=== PATIENT | male | born 1985 | race Caucasian/White ===

== ENCOUNTER 2016-10-05 19:19 | Emergency (ER) | payer SELFPAY ==
[~2016-10-05] VITALS: Ht 167.6 cm; Wt 68.3 kg
[~2016-10-05 19:19] MED LIST: DAPS25TA2 PO; DOXY100C2 PO; LEVE500T6 PO; LEVE500T99 PO; MGCT300B PO; MULT1TAB86 PO; POLY119P PO; SULF1TAB38 PO; THIA100T12 PO; TRM50T PO
[2016-10-05 19:21] VITALS: BP 117/70
[2016-10-05] MEDS ORDERED: NS IV 1000 ML 1,000 ML IV ONE (19:28)
[2016-10-05] MEDS ORDERED: LEVETIRACETAM 1,000 MG (KEPPRA) TABLET PO ONE (19:30)
[2016-10-05 19:41] LABS: BASOPHILS % (AUTO) 1 % (0-10); EOSINOPHILS # (AUTO) 0.2 10^3/uL (0.0-0.3); EOSINOPHILS % (AUTO) 3 % (0-10); LYMPHOCYTES # (AUTO) 2.3 X 10^3 (1.0-4.0); LYMPHOCYTES % (AUTO) 33 % (12-44); MEAN CORPUSCULAR HEMOGLOBIN 29 PG (25-34); MEAN CORPUSCULAR HGB CONC 36 G/DL (32-36); MEAN CORPUSCULAR VOLUME 81 FL (80-99); MEAN PLATELET VOLUME 9.9 FL (7.4-10.4); MONOCYTES # (AUTO) 0.7 X 10^3 (0.0-1.0); MONOCYTES % (AUTO) 10 % (0-12); NEUTROPHILS # (AUTO) 3.7 X 10^3 (1.8-7.8); NEUTROPHILS % (AUTO) 53 % (42-75); PLATELET COUNT 321 10^3/uL (130-400); RED BLOOD COUNT 5.09 10^6/uL (4.35-5.85); RED CELL DISTRIBUTION WIDTH 12.9 % (10.0-14.5)
[2016-10-05 19:55] LABS: ALANINE AMINOTRANSFERASE 15 U/L (0-55); ALBUMIN 4.1 G/DL (3.2-4.5); ANION GAP 12 MMOL/L (5-14); ASPARTATE AMINO TRANSFERASE 16 U/L (5-34); BILIRUBIN,TOTAL 0.4 MG/DL (0.1-1.0); BLOOD UREA NITROGEN 14 MG/DL (7-18); BUN/CREATININE RATIO 17; CARBON DIOXIDE 20 MMOL/L (21-32); CHLORIDE 107 MMOL/L (98-107); CREATINE KINASE 102 U/L (30-200); CREATININE SERUM 0.83 MG/DL (0.60-1.30); GFR ESTIMATED > 60; GLUCOSE 89 MG/DL (70-105); MAGNESIUM 2.1 MG/DL (1.8-2.4); SODIUM 139 MMOL/L (135-145); TOTAL PROTEIN 6.6 G/DL (6.4-8.2)
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
[2016-10-05 20:00] LABS: ALCOHOL < 10 MG/DL (<10)
[2016-10-05] MEDS ORDERED: ACETAMINOPHEN 500 MG TAB (TYLENOL) PO ONE (20:15)
== END 2016-10-05 20:18 | disposition left against medical advice (07) ==
LOC: EDUNIT# 19:19 → ER 19:20
DX: G43.909 Migraine, unspecified, not intractable, without status migrainosus (principal); Z91.19 Patient's noncompliance with other medical treatment and regimen; Z53.29 Procedure and treatment not carried out because of patient's decision for other reasons
CPT/HCPCS: 36415; 80053; 80320; 82550; 82553; 83735; 84443; 85025; 96360

== ENCOUNTER 2016-10-29 03:23 | Emergency (ER) | payer SELFPAY ==
[~2016-10-29] VITALS: Ht 167.6 cm; Wt 66.1 kg
--- OUTSIDE RECORDS SUMMARY | 2016-10-29 03:30 | XMS REPORT | Continuity of Care Document ---
Author Author [facility] Organization [facility] Address Unknown Phone Unavailable Care Team Providers Care Director Surface Transportation Name Role Phone ERICKA MATHIS DO PCP Insurance Providers Payer Name Policy Number Subscriber Name Relationship Unknown Advance Directives Directive Response Recorded Date/Time Advance Directives No 10/05/16 7:21pm Health Care Power of Survey Chief No 10/05/16 7:21pm Organ Donor Yes 10/05/16 7:21pm Resuscitation Status Full Code 10/05/16 7:21pm Problems Active Problems Medical Problem Onset Date Status Agitation Unknown Acute Alcohol intoxication Unknown Acute Marijuana abuse Unknown Acute Recurrent seizures Unknown Acute Medications Current Home Medications Medication Dose Units Route Directions Days/Qty Instructions Start Date Levetiracetam 500 Mg 500 Mg Oral Twice A Day 0 05/03/16 Past Home Medications Medication Directions Ordered Status Levetiracetam (Keppra) 500 Mg Tablet, 1 Each Oral Twice A Day 02/12/11 Discontinued Thiamine Hcl 100 Mg Tablet, 100 Mg Oral Daily 02/12/11 Discontinued Multivit, Iron, Min #5, Fa 1 Each Tablet, 1 Each Oral Daily 02/12/11 Discontinued Trimethoprim/Sulfamethoxazole 1 Ea Tablet, 1 Ea Oral Twice A Day 11/13/12 Discontinued Tramadol Hcl 50 Mg Tab, 50 Mg Oral Every 4HRS 11/13/12 Discontinued Dapsone 25 Mg Tablet, 2 Each Oral Twice A Day 11/13/12 Discontinued Doxycycline Hyclate (Vibramycin) 100 Mg Capsule, 1 Each Oral Twice A Day 09/14 Discontinued Tramadol Hcl 50 Mg Tab, 50 Mg Oral Every 4HRS 01/24/13 Discontinued Polyethylene Glycol 119 Gm Btl, 0 Oral Bedtime 01/24/13 Discontinued Magnesium Citrate 300 Ml Btl, 0 Oral As Directed 01/24/13 Discontinued Social History Social History Problem Response Recorded Date/Time Alcohol Use Occasionally Uses 01/24/2013 2:24pm Recreational Drug Use No 01/24/2013 2:24pm Recent Foreign Travel No 01/24/2013 2:24pm Recent Infectious Disease Exposure No 01/24/2013 2:24pm Sexually Transmitted Disease No 10/05/2016 7:21pm HIV/AIDS No 10/05/2016 7:21pm Smoking Status Current Everyday Smoker 10/05/2016 7:21pm Type Used Cigarettes 10/05/2016 7:21pm Recent Hopitalizations No 10/05/2016 7:21pm Sexually Transmitted Disease No 10/05/2016 7:21pm Query Response Start Date Stop Date Smoking Status Current Everyday Smoker Hospital Discharge Instructions No hospital discharge instructions. Plan of Care Discharge Date 10/05/16 8:18pm Disposition 07 AGAINST MEDICAL ADVICE Condition at Discharge Improved Prescriptions See Medication Section Referrals ERICKA MATHIS DO - Primary Care Physician Functional Status Query Response Date Recorded Patient Orientation Person Place Time October 05, 2016 7:28pm Comprehension Ability Understands Concepts October 05, 2016 7:28pm Allergies, Adverse Reactions, Alerts Allergen Type Severity Reaction Status Last Updated NKANo Known Allergies Allergy Unknown Active 04/10/07 Immunizations No immunization records. Vital Signs Acute Vital Signs Vital Response Date/Time Temperature (Fahrenheit) 98.8 degrees F (97.6 - 99.5) 10/05/2016 7:21pm Temperature (Calculated Celsius) 37.02632 degrees C (36.4 - 37.5) 10/05/2016 7:21pm Temperature Source Temporal 10/05/2016 7:21pm Pulse Rate (adult) 95 bpm (60 - 90) 10/05/2016 7:21pm Respiratory Rate 18 bpm (12 - 24) 10/05/2016 7:21pm O2 Sat by Pulse Oximetry 97 % (88 - 100) 10/05/2016 7:21pm Blood Pressure 117/70 mm Hg 10/05/2016 7:21pm Blood Pressure Mean 86 mm Hg 10/05/2016 7:21pm Pain Numeric Pain Scale 8 10/05/2016 7:21pm Height (Feet) 5 feet 10/05/2016 7:21pm Height (Inches) 6 inches 10/05/2016 7:21pm Height (Calculated Centimeters) 167.246884 cm 10/05/2016 7:21pm Weight (Pounds) 150 pounds 10/05/2016 7:21pm Weight (Ounces) 10.0 oz 10/05/2016 7:21pm Weight (Calculated Grams) 83724.873 gm 10/05/2016 7:21pm Weight (Calculated Kilograms) 68.096718 kilograms 10/05/2016 7:21pm Calculated BMI 20.4 10/05/2016 7:21pm Capillary Refill Capillary Refill Less Than 3 Seconds 10/05/2016 7:21pm Results Laboratory Results Test Name Result Units Flags Reference Collection Date/Time Result Date/ Time Comments White Blood Count 7.0 10^3/uL 4.3-11.0 10/05/2016 7:21pm 10/05/2016 7: 42pm Red Blood Count 5.09 10^6/uL 4.35-5.85 10/05/2016 7:21pm 10/05/2016 7: 42pm Hemoglobin 14.6 G/DL 13.3-17.7 10/05/2016 7:pm 10/05/2016 7:42pm Hematocrit 41 % 40-54 10/05/2016 7:pm 10/05/2016 7:42pm Mean Corpuscular Volume 81 FL 80-99 10/05/2016 7:pm 10/05/2016 7: 42pm Mean Corpuscular Hemoglobin 29 PG 25-34 10/05/2016 7:10/05/2016 7: 42pm Mean Corpuscular Hemoglobin Concent 36 G/DL 32-36 10/05/2016 7:pm 12/2016 7:42pm Red Cell Distribution Width 12.9 % 10.0-14.5 10/05/2016 7:pm 2016 7:42pm Platelet Count 321 10^3/uL 130-400 10/05/2016 7:21pm 10/05/2016 7:42pm Mean Platelet Volume 9.9 FL 7.4-10.4 10/05/2016 7:pm 10/05/2016 7: 42pm Neutrophils (%) (Auto) 53 % 42-75 10/05/2016 7:10/05/2016 7:42pm Lymphocytes (%) (Auto) 33 % 12-44 10/05/2016 7:10/05/2016 7:42pm Monocytes (%) (Auto) 10 % 0-12 10/05/2016 7:10/05/2016 7:42pm Eosinophils (%) (Auto) 3 % 0-10 10/05/2016 7:10/05/2016 7:42pm Basophils (%) (Auto) 1 % 0-10 10/05/2016 7:10/05/2016 7:42pm Neutrophils # (Auto) 3.7 X 10^3 1.8-7.8 10/05/2016 7:10/05/2016 7: 42pm Lymphocytes # (Auto) 2.3 X 10^3 1.0-4.0 10/05/2016 7:10/05/2016 7: 42pm Monocytes # (Auto) 0.7 X 10^3 0.0-1.0 10/05/2016 7:10/05/2016 7: 42pm Eosinophils # (Auto) 0.2 10^3/uL 0.0-0.3 10/05/2016 7:10/05/2016 7 :42pm Basophils # (Auto) 0.0 10^3/uL 0.0-0.1 10/05/2016 7:10/05/2016 7: 42pm Sodium Level 139 MMOL/L 135-145 10/05/2016 7:10/05/2016 8:00pm Potassium Level 4.0 MMOL/L 3.6-5.0 10/05/2016 7:10/05/2016 8:00pm Chloride Level 107 MMOL/L 98-107 10/05/2016 7:10/05/2016 8:00pm Carbon Dioxide Level 20 MMOL/L L 21-32 10/05/2016 7:10/05/2016 8: 00pm Anion Gap 12 MMOL/L 5-14 10/05/2016 7:10/05/2016 8:00pm Blood Urea Nitrogen 14 MG/DL 7-18 10/05/2016 7:10/05/2016 8:00pm Creatinine 0.83 MG/DL 0.60-1.30 10/05/2016 7:10/05/2016 8:00pm BUN/Creatinine Ratio 17 10/05/2016 7:10/05/2016 8:00pm Estimat Glomerular Filtration Rate > 60 10/05/2016 7:2016 8:00pm GFR INTERPRETIVE DATA UNITS FOR ESTIMATED GFR (eGFR): mL/min/1.73 M2 REFERENCE RANGE FOR ESTIMATED GFR (eGFR) eGFR NORMAL eGFR >60 MODERATELY DECREASED eGFR 30-59 SEVERLY DECREASED eGFR 15-29 KIDNEY FAILURE <15 (OR DIALYSIS) Glucose Level 89 MG/DL 70-105 10/05/2016 7:10/05/2016 8:00pm Calcium Level 9.0 MG/DL 8.5-10.1 10/05/2016 7:10/05/2016 8:00pm Magnesium Level 2.1 MG/DL 1.8-2.4 10/05/2016 7:10/05/2016 8:00pm Total Bilirubin 0.4 MG/DL 0.1-1.0 10/05/2016 7:10/05/2016 8:00pm Alkaline Phosphatase 68 U/L 40-136 10/05/2016 7:10/05/2016 8:00pm Aspartate Amino Transf (AST/SGOT) 16 U/L 5-34 10/05/2016 7:2016 8:00pm Alanine Aminotransferase (ALT/SGPT) 15 U/L 0-55 10/05/2016 7:10/05 8:00pm Total Creatine Kinase 102 U/L 30-200 10/05/2016 7:10/05/2016 8: 00pm Creatine Kinase MB 1.4 NG/ML <6.6 10/05/2016 7:10/05/2016 8:16pm Total Protein 6.6 G/DL 6.4-8.2 10/05/2016 7:10/05/2016 8:00pm Albumin 4.1 G/DL 3.2-4.5 10/05/2016 7:10/05/2016 8:00pm TSH [place] Testing 0.91 UIU/ML 0.35-4.94 10/05/2016 7:21pm 10/05/2016 8:16pm Procedures No known history of procedures. Encounters Encounter Location Arrival/Admit Date Discharge/Depart Date Attending Provider Departed Emergency Room [facility] 10/05/16 7:20pm 10/05 8:18pm KATI JADE DO
[2016-10-29 03:43] VITALS: BP 125/91
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
== END 2016-10-29 03:43 | disposition home or self-care (01) ==
LOC: EDUNIT# 03:23 → ER 03:25
DX: F41.9 Anxiety disorder, unspecified (principal); R06.4 Hyperventilation; F17.210 Nicotine dependence, cigarettes, uncomplicated
CPT/HCPCS: 99283

== ENCOUNTER 2022-11-12 04:01 | Observation (INO) | payer MEDICAID ==
[~2022-11-12] VITALS: Ht 170.2 cm; Wt 72.6 kg
[2022-11-12] MEDS ORDERED: LACTATED RINGERS 1,000 ML IV ONE ×2 (04:15→06:15)
[2022-11-12] MEDS ORDERED: LIDOCAINE UROJET 2% GEL 10 ML PKG TOP ONE (04:15)
[2022-11-12] MEDS ORDERED: LORazepam INJ 2 MG/ML (ATIVAN) VIAL IVP ONE (04:30)
[2022-11-12 05:01] LABS: BASOPHILS # (AUTO) 0.1 10^3/uL (0.0-0.1); BASOPHILS % (AUTO) 0 % (0-10); EOSINOPHILS % (AUTO) 0 % (0-10); HEMATOCRIT 43 % (40-54); LYMPHOCYTES # (AUTO) 0.6 10^3/uL (1.0-4.0); LYMPHOCYTES % (AUTO) 3 % (12-44); MEAN CORPUSCULAR HEMOGLOBIN 28 pg (25-34); MEAN CORPUSCULAR HGB CONC 35 g/dL (32-36); MEAN CORPUSCULAR VOLUME 81 fL (80-99); MEAN PLATELET VOLUME 9.3 fL (9.0-12.2); MONOCYTES # (AUTO) 0.9 10^3/uL (0.0-1.0); MONOCYTES % (AUTO) 5 % (0-12); NEUTROPHILS # (AUTO) 16.4 10^3/uL (1.8-7.8); NEUTROPHILS % (AUTO) 91 % (42-75); PLATELET COUNT 440 10^3/uL (130-400); WHITE BLOOD COUNT 18.1 10^3/uL (4.3-11.0)
[2022-11-12 05:04] LABS: ALBUMIN 4.2 GM/DL (3.2-4.5); CHLORIDE 109 MMOL/L (98-107); POTASSIUM 3.4 MMOL/L (3.6-5.0); SODIUM 143 MMOL/L (135-145)
[2022-11-12 05:05] LABS: INR 1.1 (0.8-1.4); PROTHROMBIN TIME PATIENT 14.4 SEC (12.2-14.7)
[2022-11-12 05:06] LABS: CALCIUM 9.9 MG/DL (8.5-10.1)
[2022-11-12 05:07] LABS: GLUCOSE 83 MG/DL (70-105); TOTAL PROTEIN 6.9 GM/DL (6.4-8.2)
[2022-11-12 05:08] LABS: BILIRUBIN,URINE NEGATIVE (NEGATIVE); CLARITY,URINE CLEAR; COLOR,URINE YELLOW; GLUCOSE, URINE (UA) NEGATIVE (NEGATIVE); KETONES,URINE 3+ (NEGATIVE); LEUKOCYTE ESTERASE ,URINE NEGATIVE (NEGATIVE); NITRITE,URINE NEGATIVE (NEGATIVE); PROTEIN,URINE 1+ (NEGATIVE)
[2022-11-12 05:08] LABS: CARBON DIOXIDE 20 MMOL/L (21-32)
[2022-11-12 05:11] LABS: ALKALINE PHOSPHATASE 79 U/L (40-136); CREATININE SERUM 1.37 MG/DL (0.60-1.30); GFR ESTIMATED 69
[2022-11-12 05:12] LABS: BUN/CREATININE RATIO 11
[2022-11-12 05:13] LABS: SALICYLATE < 5.0 MG/DL (5.0-20.0)
[2022-11-12 05:14] LABS: ALANINE AMINOTRANSFERASE 35 U/L (0-55); MAGNESIUM 2.1 MG/DL (1.6-2.4)
[2022-11-12 05:15] LABS: CREATINE KINASE 2173 U/L (30-200)
[2022-11-12 05:16] LABS: BACTERIA,URINE TRACE /HPF; HYALINE CASTS, URINE 0-2 /LPF; RBC,URINE 0-2 /HPF; URINE OTHER SPERM PRESENT /HPF; WBC,URINE RARE /HPF
[2022-11-12 05:17] LABS: ACETAMINOPHEN < 10 UG/ML (10-30)
[2022-11-12 05:23] LABS: CREATINE KINASE MB 29.7 NG/ML (<6.6)
[2022-11-12 05:30] LABS: AMPHETAMINE SCREEN, URINE POSITIVE (NEGATIVE); BARBITURATE SCREEN URINE NEGATIVE (NEGATIVE); BENZODIAZEPINES SCREEN URINE NEGATIVE (NEGATIVE); CANNABINOID SCREEN, URINE NEGATIVE (NEGATIVE); COCAINE SCREEN URINE NEGATIVE (NEGATIVE); METHADONE STAT NEGATIVE (NEGATIVE); OPIATE SCREEN URINE NEGATIVE (NEGATIVE); OXYCODONE STAT NEGATIVE (NEGATIVE); PROPOXYPHENE STAT NEGATIVE (NEGATIVE); TRICYCLIC ANTIDEPRESSANTS SCRE NEGATIVE (NEGATIVE)
[2022-11-12 05:31] LABS: BAND NEUTROPHILS 1 %; LYMPHOCYTES % (MANUAL) 5 %; MICROCYTOSIS SLIGHT; MONOCYTES % (MANUAL) 4 %; NEUTROPHILS % (MANUAL) 90 %
--- NOTE | 2022-11-12 05:36 | ED General ---
General Chief Complaint: Substance Abuse Stated Complaint: DELIRIUM Nursing Triage Note: PT TO RM 8 VIA [facility] FROM [facility] IN [place]. PER EMS UPON ARRIVAL PT FOUND RUNNING AROUND [facility] AGGRESSIVE, VIOLENT, AND DELIRIOUS. PT STARING BLANKLY UPON ARRIVAL TO ED, POOR HISTORIAN, NOT SPEAKING TO THIS RN. EMS ADMIN KETAMINE 300MG IM. EMS REPORTS PT TOLD THEM THAT SOMEONE GAVE HIM EITHER KRATOM OR FLAKKA. Source of Information: EMS, Old Records Exam Limitations: Intoxication, Other (PT IS NOT TALKING ON ARRIVAL. ALL PAST MEDICAL HISTORY IS FROM OLD RECORDS) (KATI JADE DO) History of Present Illness Date Seen by Provider: Nov 12, 2022 Time Seen by Provider: 04:08 Initial Comments PT ARRIVES VIA EMS EMS REPORT THEY WERE CALLED TO THE [facility], WHERE PT WAS FOUND WALKING AND RUNNING AROUND IN HIS UNDERWEAR, AND WAS HAVING VERY AGGRESSIVE BEHAVIOR. THEREFORE EMS GAVE PT 300 MG IM KETAMINE TO RIGHT ANTERIOR THIGH PRIOR TO ARRIVAL. EMS REPORT THAT THEY WERE INFORMED THAT PT HAD EITHER TAKEN KRATOM OR FLAKKA. ON ARRIVAL, PT IS STARING BLANKLY, NOT TALKING, HE IS SHIVERING SOME ON ARRIVAL HE IS GRINDING HIS TEETH PERIODICALLY HE DOES PERIODICALLY SIT UP, AND IS ABLE TO BE RE-DIRECTED TO LAY BACK DOWN. HE IS EVENTUALLY ABLE TO STATE HIS FIRST NAME, BUT UNABLE TO GIVEN MORE THAN THAT ON ARRIVAL. SOME TIME AFTER ARRIVAL, PT IS ABLE TO MAKE SOME BRIEF EYE CONTACT, AND IS ABLE TO STATE A FEW WORDS AND ANSWER A FEW VERY BASIC QUESTIONS. HE DOES STATE THAT HE ATE SOME KRATOM TONIGHT AND SMOKED METH TONIGHT. HE STATES HE HAS USED BOTH OF THESE BEFORE. HE DENIES USING FLAKKA HE DENIES IV USE--HE DOES HAVE A TRACK CHICA IN LEFT AC--PT STATES HE DONATES P LASMA. WHEN ASKED WHERE HE WAS, HE DID NOT KNOW ON ARRIVAL INFORMED HIM HE WAS IN A HOSPITAL ER, HE THEN STATES HE THINKS HE IS IN [place]. WHEN ADVISED HE WAS IN [place], HE STATES HE DOES REMEMBER THAT HE WENT TO [place] HE STATES HE DOES LIVE IN [place] HE IS NOT ABLE TO STATE ANY OTHER EVENTS OF THE EVENING. HE DENIES ANY PHYSICAL COMPLAINTS AT THIS TIME. (KATI JADE DO) Allergies and Home Medications Allergies Coded Allergies: NKANo Known Allergies (Verified Allergy, Unknown, 04/10/07) Patient Home Medication List Home Medication List Reviewed: Yes (JULIO SERRANO MD) No Active Prescriptions or Reported Meds Review of Systems Review of Systems Constitutional: see HPI Psychiatric/Neurological: See HPI (KATI JADE DO) Past Tffwtsh-Wsuksm-Ambxyy Hx Patient Social History Smoking Status: Unknown if Ever Smoked Smokeless Tobacco Frequency: Unknown if Ever Used Use of E-Cig and/or Vaping dev: Unable to obtain Use of E-Cig and/or Vaping Naga: Unknown if Ever Used Substance use?: Yes Substance type: Methamphetamine Additional substance use comme: STATES HE SMOKES METH, AND EATS KRATOM Alcohol Use?: Yes Alcohol type: Beer, Hard Liquor Pt feels they are or have been: Unable to obtain (KATI JADE DO) Immunizations Up To Date Tetanus Booster (TDap): Less than 5yrs First/Initial COVID19 Vaccinat: UNKNOWN Second COVID19 Vaccination Albert: UNKNOWN Third COVID19 Vaccination Date: UNKNOWN COVID19 Vaccine 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 DID HAVE REPORTED SEIZURES SMALL CHILD, BUT NO SIGNIFICANT PROBLEMS UNTIL DRUG AND ALCOHOL USE IN HIS TEENS. (STATES HE HAS USED "EVERYTHING" --" PRESCRIPTION MEDS, THC, METH, COCAINE, OTHERS" DENIES HEROIN USE AND DENIES IV USE) Neurological: Yes (POSSIBLY DRUG INDUCED?) Seizure Disorder Reproductive Disorders: No Sexually Transmitted Disease: No HIV/AIDS: No Psychosocial: Yes (POLYSUBSTANCE ABUSE) Anxiety Adverse Reaction/Blood Tranf: No (KATI JADE DO) Family Medical History No Pertinent Family Hx (KATI JADE DO) Physical Exam Vital Signs Vital Signs - First Documented 11/12/22 04:03 Temp 36.6 Pulse 101 Resp 20 B/P (MAP) 156/98 (117) Pulse Ox 92 O2 Delivery Room Air (JULIO SERRANO MD) Vital Signs Capillary Refill : Less Than 3 Seconds (KATI JADE DO) Height, Weight, BMI Height: 5'6" Weight: 145lbs. 10.0oz. 66.617247rg; 25.00 BMI Method:Stated General Appearance: WD/WN, Other (BIZARRE BEHAVIOR NOTED ABOVE. PERIODICALLY SITTING UP AND THEN LAYS BACK DOWN WHEN RE-DIRECTED. ) HEENT: PERRL/EOMI, Other (HORIZONTAL NYSTAGMUS INTERMITTENTLY, AND APPEARS TO BE HAVING SOME DIFFICULTY FOCUSING AT TIMES. OTHER TIMES HE PERIODICALLY STARES BLANKLY, BUT ABLE TO RE-DIRECT HIM AND HE WILL FOLLOW VERY SIMPLE COMMANDS. HE HAS A VERY SMALL HEMATOMA TO LEFT LATERAL BROW. NO BONY TENDERNESS OR DEFORMITY TO THIS AREA. POOR DENTITON. TM'S CLEAR. NOSE CLEAR. NO HYPHEMA OR SUBCONJUNCTIVAL HEMORRHAGE. SCANT AMOUNT OF DRIED BLOOD ON LIPS. BUT UNABLE TO IDENTIFY ANY INJURY TO LIPS OR MOUTH. ) Neck: Full Range of Motion, Normal Inspection, Non Tender, Supple Respiratory: Chest Non Tender, Normal Breath Sounds, No Accessory Muscle Use, No Respiratory Distress Cardiovascular: No Edema, No JVD, No Murmur, Normal Peripheral Pulses, Tachycardia Gastrointestinal: Normal Bowel Sounds, No Organomegaly, Non Tender, Soft Back: No CVA Tenderness, No Vertebral Tenderness Extremity: Normal Capillary Refill, Normal Inspection, Normal Range of Motion, Non Tender, No Calf Tenderness, No Pedal Edema Neurologic/Psychiatric: Alert, No Motor/Sensory Deficits, Other (ME NTATION/BEHAVIOR ABOVE. HE IS CURRENTLY DISORIENTED TO TIME, SITUATION. ) Skin: Normal Color, Warm/Dry, Tattoos/Piercings (EXTENSIVE TATTOOS) (KATI JADE DO) Focused Exam Lactate Level 11/12/22 04:43: Lactic Acid Level 1.86 (JULIO SERRANO MD) Lactic Acid Level Laboratory Tests Test 11/12/22 04:43 Lactic Acid Level 1.86 MMOL/L (0.50-2.00) (JULIO SERRANO MD) Progress/Results/Core Measures Suspected Sepsis SIRS Temperature: Pulse: 101 Respiratory Rate: 20 Laboratory Tests 11/12/22 04:43: White Blood Count 18.1H Blood Pressure 156 /98 Mean: 117 11/12/22 04:43: Lactic Acid Level 1.86 Laboratory Tests 11/12/22 04:43: Creatinine 1.37H, INR Comment 1.1, Platelet Count 440H, Total Bilirubin 1.0 (FELICIA JADEA Kuldip DO) Results/Orders Lab Results Laboratory Tests Test 11/12/22 04:43 11/12/22 04:59 Range/Units White Blood Count 18.1 H 4.3-11.0 10^3/uL Red Blood Count 5.33 4.30-5.52 10^6/uL Hemoglobin 15.0 13.3-17.7 g/dL Hematocrit 43 40-54 % Mean Corpuscular Volume 81 80-99 fL Mean Corpuscular Hemoglobin 28 25-34 pg Mean Corpuscular Hemoglobin Concent 35 32-36 g/dL Red Cell Distribution Width 12.7 10.0-14.5 % Platelet Count 440 H 130-400 10^3/uL Mean Platelet Volume 9.3 9.0-12.2 fL Immature Granulocyte % (Auto) 1 % Neutrophils (%) (Auto) 91 H 42-75 % Lymphocytes (%) (Auto) 3 L 12-44 % Monocytes (%) (Auto) 5 0-12 % Eosinophils (%) (Auto) 0 0-10 % Basophils (%) (Auto) 0 0-10 % Neutrophils # (Auto) 16.4 H 1.8-7.8 10^3/uL Lymphocytes # (Auto) 0.6 L 1.0-4.0 10^3/uL Monocytes # (Auto) 0.9 0.0-1.0 10^3/uL Eosinophils # (Auto) 0.0 0.0-0.3 10^3/uL Basophils # (Auto) 0.1 0.0-0.1 10^3/uL Immature Granulocyte # (Auto) 0.1 0.0-0.1 10^3/uL Neutrophils % (Manual) 90 % Lymphocytes % (Manual) 5 % Monocytes % (Manual) 4 % Band Neutrophils 1 % Microcytosis SLIGHT Prothrombin Time 14.4 12.2-14.7 SEC INR Comment 1.1 0.8-1.4 Activated Partial Thromboplast Time 28 24-35 SEC Sodium Level 143 135-145 MMOL/L Potassium Level 3.4 L 3.6-5.0 MMOL/L Chloride Level 109 H 98-107 MMOL/L Carbon Dioxide Level 20 L 21-32 MMOL/L Anion Gap 14 5-14 MMOL/L Blood Urea Nitrogen 15 7-18 MG/DL Creatinine 1.37 H 0.60-1.30 MG/DL Estimat Glomerular Filtration Rate 69 BUN/Creatinine Ratio 11 Glucose Level 83 70-105 MG/DL Lactic Acid Level 1.86 0.50-2.00 MMOL/L Calcium Level 9.9 8.5-10.1 MG/DL Corrected Calcium 9.7 8.5-10.1 MG/DL Magnesium Level 2.1 1.6-2.4 MG/DL Total Bilirubin 1.0 0.1-1.0 MG/DL Aspartate Amino Transf (AST/SGOT) 71 H 5-34 U/L Alanine Aminotransferase (ALT/SGPT) 35 0-55 U/L Alkaline Phosphatase 79 40-136 U/L Total Creatine Kinase 2173 H 30-200 U/L Creatine Kinase MB 29.7 *H <6.6 NG/ML Myoglobin 1177.5 H 10.0-92.0 NG/ML Troponin I < 0.028 <0.028 NG/ML Total Protein 6.9 6.4-8.2 GM/DL Albumin 4.2 3.2-4.5 GM/DL Salicylates Level < 5.0 L 5.0-20.0 MG/DL Acetaminophen Level < 10 L 10-30 UG/ML Serum Alcohol < 10 <10 MG/DL Urine Color YELLOW Urine Clarity CLEAR Urine pH 7.0 5-9 Urine Specific [place] 1.025 H 1.016-1.022 Urine Protein 1+ H NEGATIVE Urine Glucose (UA) NEGATIVE NEGATIVE Urine Ketones 3+ H NEGATIVE Urine Nitrite NEGATIVE NEGATIVE Urine Bilirubin NEGATIVE NEGATIVE Urine Urobilinogen 1.0 < = 1.0 MG/DL Urine Leukocyte Esterase NEGATIVE NEGATIVE Urine RBC (Auto) TRACE-I H NEGATIVE Urine RBC 0-2 /HPF Urine WBC RARE /HPF Urine Crystals NONE /LPF Urine Bacteria TRACE /HPF Urine Casts PRESENT /LPF Urine Hyaline Casts 0-2 H /LPF Urine Mucus SMALL H /LPF Urine Other SPERM PRESENT /HPF Urine Culture Indicated NO Urine Opiates Screen NEGATIVE NEGATIVE Urine Oxycodone Screen NEGATIVE NEGATIVE Urine Methadone Screen NEGATIVE NEGATIVE Urine Propoxyphene Screen NEGATIVE NEGATIVE Urine Barbiturates Screen NEGATIVE NEGATIVE Ur Tricyclic Antidepressants Screen NEGATIVE NEGATIVE Urine Phencyclidine Screen NEGATIVE NEGATIVE Urine Amphetamines Screen POSITIVE H NEGATIVE Urine Methamphetamines Screen POSITIVE H NEGATIVE Urine Benzodiazepines Screen NEGATIVE NEGATIVE Urine Cocaine Screen NEGATIVE NEGATIVE Urine Cannabinoids Screen NEGATIVE NEGATIVE (JULIO SERRANO MD) My Orders Orders - JULIO SERRANO MD Lactated Ringers (Lr 1000 Ml Iv Solution (11/12/22 06:15) Ct Head/Cervical Spine Wo (11/12/22 07:21) Drug Screen Blood Comprehensiv (11/12/22 08:16) (JULIO SERRANO MD) Medications Given in ED Current Medications Medications Dose Ordered Sig/Cecy Route Start Time Stop Time Status Last Admin Dose Admin Lactated Ringer's 1,000 ml @ 0 mls/hr Q0M ONCE IV 11/12/22 04:15 11/12/22 04:17 DC 11/12/22 04:47 0 MLS/HR Lactated Ringer's 1,000 ml @ 0 mls/hr Q0M ONCE IV 11/12/22 06:15 11/12/22 06:16 DC 11/12/22 06:28 0 MLS/HR Lidocaine HCl 10 ml ONCE ONCE TOP 11/12/22 04:15 11/12/22 04:17 DC 11/12/22 04:48 10 ML Lorazepam 2 mg ONCE ONCE IVP 11/12/22 04:30 11/12/22 04:31 DC 11/12/22 04:48 2 MG (JULIO SERRANO MD) Vital Signs/I&O 11/12/22 04:03 Temp 36.6 Pulse 101 Resp 20 B/P (MAP) 156/98 (117) Pulse Ox 92 O2 Delivery Room Air (JULIO SERRANO MD) Vital Signs/I&O Capillary Refill : Less Than 3 Seconds (KATI JADE DO) Blood Pressure Mean: 117 Progress Note : Progress Note GIVEN: -IV FLUIDS -ATIVAN, EMS REPORTS THAT KETAMINE APPEARS TO BE WEARING OFF, AND PT HAS HISTORY OF SEIZURES, AND PT HAS SOME "SHIVERING" AT THIS TIME--THERE IS NO SEIZURE ACTIVITY 0600--CARE TURNED OVER TO DR. SERRANO AT THIS TIME. PT IS SLEEPING SOUNDLY, VITALS STABLE, NO SNOROUS BREATHING OR DIFFICULTY HANDLING SECRETIONS. (KATI JADE DO) Progress Note : Time: 08:40 Progress Note I assumed care of this patient from Dr. JADE at shift change. He was sleeping quietly at shift change. After allowing him to rest for an additional hour, I woke him. With moderate effort I was able to wake him. He awoke startled and immediately began to howl like a dillard. He could not communicate in a meaningful manner. He would mumble some comprehensible words and other incomprehensible sounds. He did attempt to speak several times but I could not understand what he was trying to say. He does move all [address] of the head and cervical spine was obtained. No acute injuries were identified. A second liter of IV fluid was infused. Patient has not had satisfactory improvement and therefore will be admitted to the ICU. I did contact poison control. They advised to treat with IV fluids and benzodiazepines as needed for agitation, tachycardia, or hyperthermia. They advised avoiding restraints so as to not worsen rhabdomyolysis. Case was discussed with Dr. Ochoa, admitting physician. It is worth noting that 2 young men in the community were seen in the ER yesterday for new onset seizure, one of which had severe altered mental status and refractory seizures that required intubation and transfer to higher level of care. This raises the question of a substance of abuse in the community such as bath salts (flakka) that may be contributing to these presentations. The comprehensive serum drug screen was obtained. Patient's current temperature is 36 4. (JULIO SERRANO MD) ECG Initial ECG Impression Date: Nov 12, 2022 Initial ECG Impression Time: 05:20 Initial ECG Rate: 100 Initial ECG Rhythm: S.Tach Comment INTERPRETED BY ME. (KATI JADE DO) Diagnostic Imaging Diagonstic Imaging: CT Plain Films/CT/US/NM/MRI: c-spine, head Comments CT head and cervical spine reviewed by me. No acute injuries were identified by my interpretation. Radiologist's report was also reviewed and concurred no injuries were visible. See below: NAME: AMY MCCORMACK MED REC#: [id number] PT STATUS: REG ER : 1985 PHYSICIAN: JULIO SERRANO MD ADMIT DATE: 11/12/22/ER Signed Date of Exam:11/12/22 CT HEAD/CERVICAL SPINE WO PROCEDURE: CT head and CT cervical spine without contrast. TECHNIQUE: Multiple contiguous axial images were obtained through the brain and cervical spine without the use of intravenous contrast. Sagittal and coronal reformations through the cervical spine were then performed. Auto Exposure Controls were utilized during the CT exam to meet ALARA standards for radiation dose reduction. INDICATION: Altered mental status There is membrane thickening of the left maxillary sinus. The ventricles are normal in size, shape and position. There are no masses or hemorrhages. There are no extra-axial fluid collections. IMPRESSION: Inflammatory changes left maxillary sinus. No acute intracranial abnormality seen. CT CERVICAL SPINE: Vertebral body height and alignment appear normal. Disc spaces are normal. There is no fracture or prevertebral soft tissue swelling. IMPRESSION: Negative CT cervical spine. Dictated by: Dictated on workstation # [id number] Dict: 11/12/22 0752 Trans: 11/12/22819 [facility] [id number] Interpreted by: CYNTHIA MARSH MD Electronically signed by: CYNTHIA MARSH MD 11/12/22819 (JULIO SERRANO MD) Departure Communication (Admissions) Time/Spoke to Admitting Phy: 08:35 Dr. Ochoa (JULIO SERRANO MD) Impression Primary Impression: Altered mental status Qualified Codes: R41.82 - Altered mental status, unspecified Additional Impressions: Polysubstance abuse Rhabdomyolysis Qualified Codes: M62.82 - Rhabdomyolysis Disposition: ADMITTED INPATIENT Condition: Stable Admissions Decision to Admit Reason: Admit from ER (General) Decision to Admit/Date: Nov 12, 2022 Time/Decision to Admit Time: 08:35 (JULIO SERRANO MD) Departure-Patient Inst. Referrals: ERICKA MATHIS DO (PCP/Family) Primary Care Physician Patient Instructions: ALCOHOL AND SUBSTANCE ABUSE Scripts No Active Prescriptions or Reported Meds KATI JADE DO Nov 12, 2022 05:36 JULIO SERRANO MD Nov 12, 2022 08:44
--- NOTE | 2022-11-12 07:56 | Diagnostic Imaging Report ---
PROCEDURE: CT head and CT cervical spine without contrast. TECHNIQUE: Multiple contiguous axial images were obtained through the brain and cervical spine without the use of intravenous contrast. Sagittal and coronal reformations through the cervical spine were then performed. Auto Exposure Controls were utilized during the CT exam to meet ALARA standards for radiation dose reduction. INDICATION: Altered mental status There is membrane thickening of the left maxillary sinus. The ventricles are normal in size, shape and position. There are no masses or hemorrhages. There are no extra-axial fluid collections. IMPRESSION: Inflammatory changes left maxillary sinus. No acute intracranial abnormality seen. CT CERVICAL SPINE: Vertebral body height and alignment appear normal. Disc spaces are normal. There is no fracture or prevertebral soft tissue swelling. IMPRESSION: Negative CT cervical spine. Dictated by: Dictated on workstation # [id number]
[2022-11-12 09:40] VITALS: BP 133/75
[2022-11-12] MEDS ORDERED: LORazepam INJ 2 MG/ML (ATIVAN) VIAL IVP PRN (09:45)
[2022-11-12] MEDS ORDERED: MELATONIN 3 MG TABLET PO PRN (10:00)
[2022-11-12] MEDS ORDERED: ACETAMINOPHEN 325 MG TABLET PO PRN (10:00)
[2022-11-12] MEDS ORDERED: ONDANSETRON 4 MG/2 ML (SDV) Z0FRAN IV PRN (10:00)
[2022-11-12] MEDS: NS IV 1000 ML 1,000 ML IV SCH ×2 (10:43→18:33)
--- NOTE | 2022-11-12 11:57 | History & Physical ---
EDDY PARIS 11/12/22 1157: History of Present Illness History of Present Illness Reason for visit/HPI Patient is a 37-year-old male with a history of epilepsy, polysubstance abuse, and alcohol abuse who presented to the ED via EMS on 11/12. Patient is a poor historian, history is obtained from records. EMS was called by police after patient was found walking around his underwear at [employer] in [place]. When EMS arrived they found him agitated and violent and gave him 300mg ketamine IM. EMS was told that the patient had smoked meth and had kratom or flakka last night. EMS reports the patient stated he ate kratom. A urine screen tested positive for methamphetamine. The patient was given 2mg IV ativan in the ED for agitation. When seen, the patient is at times somnolent and difficult to arouse or agitated with jerky movements and howling. The patient was unable to answer any questions or follow instructions. Date of Admission Nov 12, 2022 at 08:51 Time Seen by a Provider: 10:45 I consulted on this patient on 11/12/22 11:48 Attending Physician Shreyas Sandra DO Admitting Physician Admitting Physician: Marylin Ochoa MD Attending Physician: Marylin Ochoa MD Consult Allergies and Home Medications Allergies Coded Allergies: NKANo Known Allergies (Verified Allergy, Unknown, 04/10/07) Patient Home Medication List Home Medication List Reviewed: Yes Discontinued Medications Levetiracetam (Keppra) 500 Mg Tablet, 500 MG PO BID Discontinued Reason: No Longer Taking Prescribed by: URSULA BURROWS on 05/03/16 1151 Last Action: Discontinued Past Styjplw-Siotcu-Eipspd Hx Patient Social History Smoking Status: Unknown if Ever Smoked Smokeless Tobacco Frequency: Unknown if Ever Used Use of E-Cig and/or Vaping dev: Unable to obtain Use of E-Cig and/or Vaping Naga: Unknown if Ever Used Substance use?: Yes Substance type: Methamphetamine, Hallucinogens Additional substance use comme: STATES HE SMOKES METH, AND EATS KRATOM Alcohol Use?: Unable to obtain Alcohol type: Beer, Hard Liquor Pt feels they are or have been: Unable to obtain Immunizations Up To Date First/Initial COVID19 Vaccinat: UNKNOWN Second COVID19 Vaccination Albert: UNKNOWN Tetanus Booster (TDap): Unknown Seasonal Allergies Seasonal Allergies: No Current Status Advance Directives: Unable to obtain Communicates: Verbally Primary Language: South African Preferred Spoken Language: South African Is interpretation needed?: No Implanted or Applied Medical D: None Past Medical History Seizure Disorder Sexually Transmitted Disease: No HIV/AIDS: No Anxiety Adverse Reaction/Blood Tranf: No Family Medical History No Pertinent Family Hx Review of Systems ROS-Unable to Obtain: Unable to obtain due to patient's current condition Physical Exam Vital Signs Vital Signs - First Documented 11/12/22 04:03 Temp 36.6 Pulse 101 Resp 20 B/P (MAP) 156/98 (117) Pulse Ox 92 O2 Delivery Room Air Capillary Refill : Less Than 3 Seconds Height, Weight, BMI Height: 5'6" Weight: 145lbs. 10.0oz. 66.906202ix; 25.06 BMI Method:Stated General Appearance: WD/WN, Mild Distress HEENT: Other (Poor dentition, multiple scabs on lips) Neck: Non Tender, Supple Respiratory: Normal Breath Sounds, No Respiratory Distress Cardiovascular: No Edema, No Murmur, Normal Peripheral Pulses, Tachycardia (Tachycardic on admission, currently normal rate) Gastrointestinal: Normal Bowel Sounds, Soft Rectal: Deferred Extremity: Normal Capillary Refill, No Pedal Edema Neurologic/Psychiatric: Other (alternates between agitation and jerky movements and somnolence) Skin: Normal Color, Warm/Dry Lymphatic: No Adenopathy Assessment/Plan Assessment and Plan Rhabdomyolysis with ELEUTERIO Given 2L of LR in ED Continue NS at 125mls/hr Monitor urine output Monitor CPK Polysubstance abuse Ativan 1mg IV Q8H PRN for agitation 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 Noted in records that became significant problem only after increasing alcohol and substance abuse Had stated previously that he had tried "all kinds of medications" and that none of them worked. Last recorded is Keppra 500mg PO daily which the patient stated he stopped due to how it made him feel Telesitter Leukocytosis Measured at 18.1 Most likely due to rhabdomyolysis and methamphetamine use No areas of erythema and swelling, no fever or other sign of infections, UA negative for UTI Hypokalemia Measured at 3.4 Given 2L of LR Recheck on AM labs Tachycardia HR 101 on admission, currently normal rate On telemetry HTN 156/98 on admission, has been normotensive since Continue to monitor Admission Diagnosis Admission Status: Other MARYLIN OCHOA MD 11/12/22 1406: Allergies and Home Medications Allergies Coded Allergies: Lucas Known Allergies (Verified Allergy, Unknown, 04/10/07) Patient Home Medication List Discontinued Medications Levetiracetam (Keppra) 500 Mg Tablet, 500 MG PO BID Discontinued Reason: No Longer Taking Prescribed by: URSULA BURROWS on 05/03/16 1151 Last Action: Discontinued Review of Systems Constitutional: see HPI Assessment/Plan Assessment and Plan Patient admitted due to rhabdomyolysis following methamphetamine use and bath salt use. He was quite agitated in the ER and given ativan and is now quite sedated and unable to provide any history. He was found to have an elevated CK of 2173. His temperature is WNL and there is no evidence of neuroleptic malignant syndrome at this time. We will monitor him closely in the ICU and given high rate IVF. We'll check labs in the AM as well and if doing well hopefully home tomorrow. Unfortunately patient elected to leave AMA in the middle of the night. He has expressed suicidal intentions to the nurse and so police were called upon his departure to check his safety. Admission Diagnosis Admission Status: Observation Supervisory-Addendum Brief Verification & Attestation Participated in pt care: history, MDM, physical Personally performed: exam, history, MDM, supervision of care Care discussed with: Medical Student Procedures: n/a Results interpretation: Verified all documentation Verification and Attestation of Medical Student E/M Service A medical student performed and documented this service in my presence. I reviewed and verified all information documented by the medical student and made modifications to such information, when appropriate. I personally performed the physical exam and medical decision making. Marylin Ochoa, Nov 12, 2022,14:02 EDDY PARIS Nov 12, 2022 11:57 MARYLIN OCHOA MD Nov 12, 2022 14:06
--- NOTE | 2022-11-12 12:03 | Tele-ICU Consult ---
History of Present Illness History of Present Illness Date Seen by Provider: Nov 12, 2022 Time Seen by Provider: 12:01 History of Present Illness (Tele-ICU Physician , consultation as per request of PCP Service provided via interactive audio and video telecommunications E-CARE system to a patient admitted to ICU bed in [facility]. Available chart/ vitals / labs / Images reviewed H&P is from ER notes Patient's information available about PMH, Shx, Fhx allergy reviewed inEMR. ROS as per chart and RN report Now in ICU, hemodynamically stable Video assessment done using teleICU camera, rest of exam as per RN Discussed with RN. Consultants: Hospital course: (11/12) 37y/o M admitted with substance abuse, altered behavior & rhabdo. Admitted to taking Kratom or Flakka(bath salts). (+) Tox screen-amphetamines & methamphetamines. Track urrutia noted. Posion control notified. A/P Agitation/ confusion / delirium - presumed induced by illicit drugs ( + amph , + metamp , expand tox screen pending ) - CT of the head and cervical spine - no bleed or Fr - Tx with ketamine 300 and ativan 2 mg - KEEP ON ATIVAN PRN - Er contact poison control. They advised t IV fluids and benzodiazepines Rhabdomyolysis, mild CPK 2 K on admission - hydration , recheck labs , replace lytes Seizure dz vs withdrowal Sz -benzo for now prn , monitor for sz Leukocytosis - suspect reactive CHRONIC ALCOHOL USE/ ILLICIT DRUG USE - thiamine and folate Lines : , (Central Line Necessity Reviewed) Tam: OG: Nutrition: Analgesia: Anxiety/ delirium VTE Prophylaxis: scd Stress Ulcer Prophylaxis: na Glycemic Control: Plans in collaboration with bedside consultants and IM MDs. Discussed with RN to reach out if any questions or concerns A total of 32 minutes of critical care time was devoted to this patient today, required to treat and/or prevent further deterioration of critical care condition ( as above ) . I am remotely monitoring this patient from another state. I am unable to do the bedside exam, and history/physical and pertinent information is taken from other notes in the computer and bedside staff. . Allergies and Home Medications Allergies Coded Allergies: NKANo Known Allergies (Verified Allergy, Unknown, 04/10/07) Home Medications Levetiracetam 500 Mg Tablet, 500 MG PO BID Prescribed by: URSULA BURROWS on 05/03/16 1151 Past Medical/Social/Family Hx Patient Social History Smoking Status: Unknown if Ever Smoked Smokeless Tobacco Frequency: Unknown if Ever Used Use of E-Cig and/or Vaping dev: Unable to obtain E-Cig and/or Vaping Freq: Unknown if Ever Used Substance use?: Yes Substance type: Methamphetamine, Hallucinogens STATES HE SMOKES METH, AND EATS KRATOM Alcohol Use?: Unable to obtain Alcohol type: Beer, Hard Liquor Pt stated abuse/neglect: Unable to obtain Immunizations Up To Date Influenza Vaccine Up-to-Date: No; Not Current First/Initial COVID19 Vaccinat: UNKNOWN Second COVID19 Vaccination Albert: UNKNOWN Tetanus Booster (TDap): Unknown Current Status Advance Directives: Unable to obtain Communicates: Verbally Primary Language: Japanese Preferred Spoken Language: Japanese Is interpretation needed?: No Implanted or Applied Medical D: None Review of Systems Constitutional: see HPI Focused Exam Lactate Level 11/12/22 04:43: Lactic Acid Level 1.86 Height, Weight, BMI Height: 5'6" Weight: 145lbs. 10.0oz. 66.420780sb; 25.06 BMI Method:Stated Exam Exam Patient acknowledged, consented, and participated in this virtual visit which was conducted using real time audio/video Vital Signs Date Time Temp Pulse Resp B/P (MAP) Pulse Ox O2 Delivery O2 Flow Rate FiO2 11/12/22 11:00 96 14 123/76 (93) 97 Room Air 11/12/22 10:23 87 11/12/22 10:23 98 14 125/87 (100) 100 Room Air 11/12/22 09:40 36.3 76 19 133/75 97 Room Air 11/12/22 04:03 36.6 101 20 156/98 (117) 92 Room Air I & O 11/12/22 07:00 Intake Total 1000 ml Balance 1000 ml Height & Weight Height: 5'6" Weight: 145lbs. 10.0oz. 66.965713ye; 25.06 BMI Method:Stated General Appearance: WD/WN, Other (BIZARRE BEHAVIOR NOTED ABOVE. PERIODICALLY SITTING UP AND THEN LAYS BACK DOWN WHEN RE-DIRECTED. ) HEENT: PERRL/EOMI, Other (HORIZONTAL NYSTAGMUS INTERMITTENTLY, AND APPEARS TO BE HAVING SOME DIFFICULTY FOCUSING AT TIMES. OTHER TIMES HE PERIODICALLY STARES BLANKLY, BUT ABLE TO RE-DIRECT HIM AND HE WILL FOLLOW VERY SIMPLE COMMANDS. HE HAS A VERY SMALL HEMATOMA TO LEFT LATERAL BROW. NO BONY TENDERNESS OR DEFORMITY TO THIS AREA. POOR DENTITON. TM'S CLEAR. NOSE CLEAR. NO HYPHEMA OR SUBCONJUNCTIVAL HEMORRHAGE. SCANT AMOUNT OF DRIED BLOOD ON LIPS. BUT UNABLE TO IDENTIFY ANY INJURY TO LIPS OR MOUTH. ) Neck: Full Range of Motion, Normal Inspection, Non Tender, Supple Respiratory: Chest Non Tender, Normal Breath Sounds, No Accessory Muscle Use, No Respiratory Distress Cardiovascular: No Edema, No JVD, No Murmur, Normal Peripheral Pulses, Tachycardia Capillary Refill: Less Than 3 Seconds Extremity: Normal Capillary Refill, Normal Inspection, Normal Range of Motion, Non Tender, No Calf Tenderness, No Pedal Edema Neurologic/Psychiatric: Alert, No Motor/Sensory Deficits, Other (MEN TATION/BEHAVIOR ABOVE. HE IS CURRENTLY DISORIENTED TO TIME, SITUATION. ) Skin: Normal Color, Warm/Dry, Tattoos/Piercings (EXTENSIVE TATTOOS) Results Lab Laboratory Tests 11/12/22 04:43 Assessment/Plan Assessment/Plan 1 RALPH GOOD MD Nov 12, 2022 12:03
[2022-11-12] MEDS ORDERED: THIAMINE INJECTION 100 MG in NS (IVPB) 50 ML IV NR (12:15)
[2022-11-12 14:57] LABS: CALCIUM 8.5 MG/DL (8.5-10.1); CREATININE SERUM 0.86 MG/DL (0.60-1.30); MAGNESIUM 2.1 MG/DL (1.6-2.4); POTASSIUM 3.6 MMOL/L (3.6-5.0)
[2022-11-13] MEDS ORDERED: THIAMINE 100 MG (VITAMIN B-1) TAB PO SCH (07:00)
[2022-11-13] MEDS ORDERED: FOLIC ACID 1 MG TAB PO SCH (09:00)
== END 2022-11-13 02:15 | disposition left against medical advice (07) ==
LOC: EDUNIT# 04:01 → ER 04:02 → ICU 08:51
PROVIDERS: ADMIT Family Medicine; ATTEND Family Medicine
DX: M62.82 Rhabdomyolysis (principal); F15.10 Other stimulant abuse, uncomplicated; F19.10 Other psychoactive substance abuse, uncomplicated; N17.9 Acute kidney failure, unspecified; G40.909 Epilepsy, unspecified, not intractable, without status epilepticus; R41.82 Altered mental status, unspecified; D72.829 Elevated white blood cell count, unspecified; R00.0 Tachycardia, unspecified; I10 Essential (primary) hypertension; E87.6 Hypokalemia; Z79.899 Other long term (current) drug therapy
CPT/HCPCS: 36415; 51702; 70450; 72125; 80048; 80053; 80306; 80307; 80320; 80329; 81000; 82550; 82553; 83605; 83735; 83874; 84484; 85007; 85027; 85610; 85730; 93005; 93041; 96361; 96374; 96375; 96376

== ENCOUNTER 2022-11-13 03:13 | Inpatient (IN) | payer MEDICAID ==
[~2022-11-13] VITALS: Ht 177 cm; Wt 71.9 kg
[2022-11-13] MEDS ORDERED: LACTATED RINGERS 1,000 ML IV ONE ×2 (03:30→04:30)
--- NOTE | 2022-11-13 03:38 | ED General ---
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 PT WAS SEEN HERE YESTERDAY AROUND 0400, BROUGHT IN BY EMS FROM A LOCAL MOTEL, WHERE HE WAS RUNNING AROUND IN HIS UNDERWEAR AND BEING VERY AGGRESSIVE. EMS HAD GIVEN PT KETAMINE 300 MG IM PRIOR TO ARRIVAL YESTERDAY. HE HAD ADMITTED TO SMOKING METHAMPHETAMINE AND EATING KRATOM YESTERDAY, AND WAS SUBSEQUENTLY ADMITTED TO ICU FOR CONTINUED ALTERED MENTAL STATUS. ASSET PROTECTION DETECTIVE REPORTS THAT PT SLEPT MOST OF THE DAY TODAY, THEN WOKE UP THIS EVENING AND BEHAVIOR WAS AGAIN HAVING SOME AGGRESSIVE BEHAVIOR AND HE REPEATEDLY RIPPED UP CLOTHING THAT HAD BEEN GIVEN HIM, AND HE EVENTUALLY LEFT A [facility] AT 0230, AND WAS ESCORTED OFF PREMISES BY HOSPITAL SECURITY. SECURITY AND [place] [employer] WERE CONTACTED BY NURSING STAFF, AND THEY FOUND THE PT, AND AT SOME POINT ON QUESTIONING HIM, THE PT STATED HE WAS SUICIDAL, SO THEY BROUGHT HIM BACK HERE TO ER TO BE EVALUATED. ON ARRIVAL HERE, PT IS VERY AWAKE AND ALERT, BUT IS CONSTANTLY PICKING AT AND TEARING THE SWEAT PANTS THAT HE HAS ON, AND IS FIXATED ON THAT. HE DOES ANSWER SOME QUESTIONS, BUT STATES HE DID NOT KNOW HE HAD EVEN BEEN IN THE HOSPITAL LAST NIGHT OR TODAY, AND STATES HE DID NOT KNOW HE HAD JUST LEFT THE HOSPITAL HE STATES HE DOES NOT KNOW WHERE HE IS, OR WHAT THE DATE OR DAY OF WEEK, OR MONTH OR YEAR IT IS. HE DOES NOT VOLUNTEER ANY INFORMATION. ON DIRECT QUESTIONING IF HE WAS SUICIDAL HE STATES HE HAS BEEN SUICIDAL FOR THE LAST COUPLE OF YEARS. HE DOES NOT HAVE ANY PLAN AT THIS TIME HE STATES HE ONCE TRIED TO LET A TRAIN RUN OVER HIM, BUT DID NOT GO THROUGH WITH IT. UNABLE TO OBTAIN ANY OTHER RELIABLE INFORMATION FROM PT. PT APPEARS TO STILL BE UNDER THE INFLUENCE OF SOME SUBSTANCE/S. HE WILL ANSWER VERY SIMPLE YES/NO QUESTIONS OR 2-3 WORD PHRASES--AFTER ASKING SAME QUESTION MULTIPLE TIMES, BUT OTHERWISE IS NOT TALKING, AND CANNOT COMPLETE A SENTENCE OR CARRY ON ANY TYPE OF CONVERSATION. HE IS CONSTANTLY HAVING TO BE RE-DIRECTED, BUT HE WILL COOPERATE WHEN TOLD TO DO CERTAIN THINGS AFTER REPEATING EVERYTHING TO HIM MULTIPLE TIMES. PCP: NONE Allergies and Home Medications Allergies Coded Allergies: Lucas Known Allergies (Verified Allergy, Unknown, 04/10/07) Patient Home Medication List Home Medication List Reviewed: Yes Discontinued Medications Levetiracetam (Keppra) 500 Mg Tablet, 500 MG PO BID Discontinued Reason: No Longer Taking Prescribed by: URSULA BURROWS on 05/03/16 1151 Review of Systems Review of Systems Constitutional: other (UNABLE TO OBTAIN RELIABLE INFORMATION FROM PT. ) Psychiatric/Neurological: See HPI Past Bcepsqt-Sdrper-Xhglov Hx Immunizations Up To Date Tetanus Booster (TDap): Less than 5yrs First/Initial COVID19 Vaccinat: UNKNOWN Second COVID19 Vaccination Albert: UNKNOWN Third COVID19 Vaccination Date: UNKNOWN Seasonal Allergies Seasonal Allergies: No Past Medical History Surgery/Hospitalization HX: ON VISIT 11/12/22, ALL PMH IS FROM OLD RECORDS PT HAD SEVERAL VISITS FROM [phone]--MANY RELATED TO SEIZURES RELATED TO DRUG AND ALCOHOL ABUSE. DID HAVE REPORTED SEIZURES SMALL CHILD, BUT NO SIGNIFICANT PROBLEMS UNTIL DRUG AND ALCOHOL USE IN HIS TEENS. (STATES HE HAS USED "EVERYTHING" --" PRESCRIPTION MEDS, THC, METH, COCAINE, OTHERS" DENIES HEROIN USE AND DENIES IV USE) Neurological: Yes (POSSIBLY DRUG INDUCED?) Seizure Disorder Reproductive Disorders: No Sexually Transmitted Disease: No HIV/AIDS: No Psychosocial: Yes (POLYSUBSTANCE ABUSE) Anxiety Adverse Reaction/Blood Tranf: No Family Medical History No Pertinent Family Hx PT IS HOMELESS. ON 11/12/22, HE STATES HE LIVES IN [place]. HE HAS NO IDEA HOW HE GOT TO [place], OR EVEN THAT HE WAS IN [place]. SOCIAL HISTORY: -SMOKES -ETOH-- -DRUGS, EXTENSIVE HISTORY OF DRUG ABUSE--ON PREVIOUS RECORDS, PT HAS STATED (STATES HE HAS USED "EVERYTHING" --" PRESCRIPTION MEDS, THC, METH, COCAINE, OTHERS" DENIES HEROIN USE AND DENIES IV USE) UDS ON 11/12/22--+ FOR AMPHETAMINES / METHAMPHETAMINES; HE ALSO ADMITTED TO EATING KRATOM AT THAT VISIT. Physical Exam Vital Signs Vital Signs - First Documented 11/13/22 03:25 Temp 36.6 Pulse 137 Resp 20 B/P (MAP) 145/90 (108) Capillary Refill : Height, Weight, BMI Height: 5'6" Weight: 145lbs. 10.0oz. 66.723740hg; 25.06 BMI Method:Stated General Appearance: No Apparent Distress, WD/WN, Other (PT WALKS UPRIGHT WITH STEADY GAIT. PT IS CONSTANTLY PICKING AT AND RIPPING THE SWEATPANTS HE IS WEARING, AND EVENTUALLY HE COMPLETELY RIPPED THE SWEATPANTES INTO A MULTITUDE OF PIECES, WELL THE DISPOSABLE UNDERWEAR HE WAS WEARING. ) HEENT: PERRL/EOMI Neck: Normal Inspection Respiratory: Normal Breath Sounds Cardiovascular: Tachycardia Gastrointestinal: Non Tender Back: Normal Inspection Extremity: Normal Capillary Refill, Normal Inspection, No Pedal Edema Neurologic/Psychiatric: Alert, No Motor/Sensory Deficits, Other (MENTATION AND BEHAVIOR NOTED ABOVE. ) Skin: Normal Color, Warm/Dry Progress/Results/Core Measures Suspected Sepsis SIRS Temperature: Pulse: Respiratory Rate: Laboratory Tests 11/13/22 03:20: White Blood Count 11.3H Blood Pressure / Mean: Laboratory Tests 11/13/22 03:20: Creatinine 0.92, Platelet Count 414H, Total Bilirubin 1.0 Results/Orders Lab Results Laboratory Tests Test 11/13/22 03:20 Range/Units White Blood Count 11.3 H 4.3-11.0 10^3/uL Red Blood Count 5.55 H 4.30-5.52 10^6/uL Hemoglobin 15.7 13.3-17.7 g/dL Hematocrit 46 40-54 % Mean Corpuscular Volume 83 80-99 fL Mean Corpuscular Hemoglobin 28 25-34 pg Mean Corpuscular Hemoglobin Concent 34 32-36 g/dL Red Cell Distribution Width 13.4 10.0-14.5 % Platelet Count 414 H 130-400 10^3/uL Mean Platelet Volume 9.3 9.0-12.2 fL Immature Granulocyte % (Auto) 0 % Neutrophils (%) (Auto) 84 H 42-75 % Lymphocytes (%) (Auto) 10 L 12-44 % Monocytes (%) (Auto) 6 0-12 % Eosinophils (%) (Auto) 0 0-10 % Basophils (%) (Auto) 0 0-10 % Neutrophils # (Auto) 9.5 H 1.8-7.8 10^3/uL Lymphocytes # (Auto) 1.1 1.0-4.0 10^3/uL Monocytes # (Auto) 0.6 0.0-1.0 10^3/uL Eosinophils # (Auto) 0.0 0.0-0.3 10^3/uL Basophils # (Auto) 0.1 0.0-0.1 10^3/uL Immature Granulocyte # (Auto) 0.0 0.0-0.1 10^3/uL Erythrocyte Sedimentation Rate 9 0-15 MM/HR Sodium Level 142 135-145 MMOL/L Potassium Level 3.1 L 3.6-5.0 MMOL/L Chloride Level 107 98-107 MMOL/L Carbon Dioxide Level 19 L 21-32 MMOL/L Anion Gap 16 H 5-14 MMOL/L Blood Urea Nitrogen 9 7-18 MG/DL Creatinine 0.92 0.60-1.30 MG/DL Estimat Glomerular Filtration Rate 111 BUN/Creatinine Ratio 10 Glucose Level 74 70-105 MG/DL Calcium Level 9.6 8.5-10.1 MG/DL Corrected Calcium 9.4 8.5-10.1 MG/DL Magnesium Level 1.9 1.6-2.4 MG/DL Total Bilirubin 1.0 0.1-1.0 MG/DL Aspartate Amino Transf (AST/SGOT) 65 H 5-34 U/L Alanine Aminotransferase (ALT/SGPT) 35 0-55 U/L Alkaline Phosphatase 85 40-136 U/L Total Creatine Kinase 1862 H 30-200 U/L Creatine Kinase MB 17.9 *H <6.6 NG/ML Myoglobin 383.3 H 10.0-92.0 NG/ML C-Reactive Protein High Sensitivity 2.00 H 0.00-0.50 MG/DL Total Protein 7.4 6.4-8.2 GM/DL Albumin 4.2 3.2-4.5 GM/DL Acetaminophen Level < 10 L 10-30 UG/ML Serum Alcohol < 10 <10 MG/DL My Orders Orders - KATI JADE DO Ed Iv/Invasive Line Start (11/13/22 03:24) Ekg Tracing (11/13/22 03:24) Monitor-Rhythm Ecg Trace Only (11/13/22 03:24) Acetaminophen (11/13/22 03:24) Alcohol (11/13/22 03:24) Cbc With Automated Diff (2/11/23 03:24) Comprehensive Metabolic Panel (11/13/22 03:24) Creatine Kinase (11/13/22 03:24) Creatine Kinase Mb (11/13/22:24) Hs C Reactive Protein (11/13/22:24) Magnesium (11/13/22 03:24) Ua Culture If Indicated (11/13/22:24) Erythrocyte Sedimentation Rate (11/13/22:24) Myoglobin Serum (11/13/22:24) Ed Iv/Invasive Line Start (11/13/22 03:24) Lactated Ringers (Lr 1000 Ml Iv Solution (11/13/22 03:30) Ed Iv/Invasive Line Start (11/13/22 04:21) Lactated Ringers (Lr 1000 Ml Iv Solution (11/13/22 04:30) Medications Given in ED Vital Signs/I&O 11/13/22 03:25 Temp 36.6 Pulse 137 Resp 20 B/P (MAP) 145/90 (108) Capillary Refill : Progress Note : Progress Note GIVEN: -IV FLUIDS PT IS NOT LUCID ENOUGH AT THIS TIME TO HAVE A MENTAL HEALTH SCREEN, HE APPEARS TO STILL BE UNDER THE INFLUENCE OF SUBSTANCE/S AND CANNOT CARRY ON ANY TYPE OF CONVERSATION AND IS STILL DISORIENTED TO PLACE, TIME, SITUATION, AND HAS NO RECOLLECTION THAT HE HAS BEEN IN THE HOSPITAL FOR THE LAST 24 HOURS, AND DOES NOT EVEN RECALL LEAVING THE HOSPITAL OR BEING OUTSIDE A SHORT WHILE AGO. HE DOES NOT RECALL ANY CONVERSATION OR ANY THING THAT HAS OCCURRED EVEN SINCE HE HAS BEEN BROUGHT BACK TO THE ER. [place] [employer] LEFT SOON PT WAS DELIVERED TO ER, AND HOSPITAL SECURITY GUARDS THEN LEFT A SHORT TIME AFTER THAT. PT VOICED NO SUICIDAL IDEATIONS FOR THE REMAINDER OF THE ER STAY PT HAD NO COMPLAINTS FOR ENTIRE ER STAY PT REMAINED COOPERATIVE, AND DID NOT HAVE ANY AGGRESSIVE BEHAVIOR FOR THE ENTIRE ER STAY HE DID COMPLETELY SHRED THE SWEATPANTS HE WORE INTO ER THAT HE HAD BEEN GIVEN EARLIER, WELL THE DISPOSABLE BRIEF HE WAS GIVEN. HE ALSO CONSTANTLY PICKED, PULLED AT, RIPPED AND UNRAVELED AND TRIED TO SHRED THE BLANKET HE WAS GIVEN HERE IN ER. HE REMOVED THE POCKET FROM HIS HOSPITAL GOWN, BUT COMPLETELY REMOVING ALL THE THREAD REVIEWED RECORDS FROM HIS INPATIENT STAY FROM TIME HE WAS ADMITTED EARLIER, UNTIL THE TIME HE LEFT WELLS. HE DID HAVE EVIDENCE OF RHABDOMYOLYSIS ON EARLIER ADMIT, AND NUMBERS OVERALL ARE TRENDING DOWN, WITH EXCEPTION OF TOTAL CK UP A LITTLE FROM THE LAST LAB DRAW. ECG Initial ECG Impression Date: Nov 13, 2022 Initial ECG Impression Time: 04:13 Initial ECG Rate: 93 Initial ECG Rhythm: Normal Sinus (SINUS ARRHYTHMIA) Departure Communication (Admissions) 0423--SPOKE WITH DR BRAGG, HOSPITALIST, ACCEPTS PT FOR ADMIT. Impression Primary Impression: Polysubstance abuse Additional Impressions: Rhabdomyolysis Passive suicidal ideations Methamphetamine use Marijuana use ALTERED MENTAL STATUS DUE TO SUBSTANCE ABUSE Disposition: ADMITTED INPATIENT Condition: Stable Admissions Decision to Admit Reason: Admit from ER (General) Decision to Admit/Date: Nov 13, 2022 Time/Decision to Admit Time: 04:25 Departure-Patient Inst. Referrals: ERICKA MATHIS DO (PCP/Family) Primary Care Physician KATI JADE DO Nov 13, 2022 03:38
[2022-11-13 03:40] LABS: BASOPHILS # (AUTO) 0.1 10^3/uL (0.0-0.1); BASOPHILS % (AUTO) 0 % (0-10); EOSINOPHILS % (AUTO) 0 % (0-10); HEMATOCRIT 46 % (40-54); HEMOGLOBIN 15.7 g/dL (13.3-17.7); LYMPHOCYTES # (AUTO) 1.1 10^3/uL (1.0-4.0); LYMPHOCYTES % (AUTO) 10 % (12-44); MEAN CORPUSCULAR HEMOGLOBIN 28 pg (25-34); MEAN CORPUSCULAR HGB CONC 34 g/dL (32-36); MEAN CORPUSCULAR VOLUME 83 fL (80-99); MEAN PLATELET VOLUME 9.3 fL (9.0-12.2); MONOCYTES # (AUTO) 0.6 10^3/uL (0.0-1.0); MONOCYTES % (AUTO) 6 % (0-12); NEUTROPHILS # (AUTO) 9.5 10^3/uL (1.8-7.8); NEUTROPHILS % (AUTO) 84 % (42-75); PLATELET COUNT 414 10^3/uL (130-400); WHITE BLOOD COUNT 11.3 10^3/uL (4.3-11.0)
[2022-11-13 03:50] LABS: CHLORIDE 107 MMOL/L (98-107); POTASSIUM 3.1 MMOL/L (3.6-5.0); SODIUM 142 MMOL/L (135-145)
[2022-11-13 03:51] LABS: ALBUMIN 4.2 GM/DL (3.2-4.5)
[2022-11-13 03:52] LABS: CALCIUM 9.6 MG/DL (8.5-10.1)
[2022-11-13 03:53] LABS: GLUCOSE 74 MG/DL (70-105); TOTAL PROTEIN 7.4 GM/DL (6.4-8.2)
[2022-11-13 03:54] LABS: CARBON DIOXIDE 19 MMOL/L (21-32)
[2022-11-13 03:57] LABS: ALKALINE PHOSPHATASE 85 U/L (40-136); CREATININE SERUM 0.92 MG/DL (0.60-1.30); GFR ESTIMATED 111
[2022-11-13 03:58] LABS: BUN/CREATININE RATIO 10
[2022-11-13 04:00] LABS: ALANINE AMINOTRANSFERASE 35 U/L (0-55); CREATINE KINASE 1862 U/L (30-200); MAGNESIUM 1.9 MG/DL (1.6-2.4)
[2022-11-13 04:09] LABS: ERYTHROCYTE SEDIMENTATION RATE 9 MM/HR (0-15)
[2022-11-13 04:11] LABS: ACETAMINOPHEN < 10 UG/ML (10-30); CREATINE KINASE MB 17.9 NG/ML (<6.6)
[2022-11-13] MEDS: D5 1/2 NS W/KCL 20 MEQ/L 1,000 ML IV SCH ×4 (05:47→23:06)
[2022-11-13] MEDS ORDERED: LORazepam INJ 2 MG/ML (ATIVAN) VIAL ONE (07:54)
[2022-11-13] MEDS: POTASSIUM CL 10MEQ/50ML IVPB 50 ML IV SCH ×2 (07:58→08:00)
[2022-11-13] MEDS: LORazepam INJ 2 MG/ML (ATIVAN) VIAL IVP PRN (08:00)
--- NOTE | 2022-11-13 08:25 | History & Physical-Hospitalist ---
History of Present Illness HPI/Chief Complaint Patient is a 37-year-old male known to me from recent admission yesterday who presented to the emergency department by police due to suicidal ideation. He was admitted yesterday due to rhabdomyolysis from methamphetamine use. He left AMA but the police were called due to his remarks regarding suicidal ideation. The police brought him back in for evaluation. His CK was still found to be quite elevated at 1800. He still endorses suicidal ideation at this time but really does not answer many other questions. His history is limited and he is fixated on ripping apart the pulse oximetery attachment in his hand. Source: patient Date Seen 11/13/22 Time Seen by a Provider: 08:22 Attending Physician Shreyas Sandra DO PCP Admitting Physician: Marika Ochoa MD Attending Physician: Marika Ochoa MD Referring Physician Date of Admission Nov 13, 2022 at 04:25 Home Medications & Allergies Home Medications Reviewed patient Home Medication Reconciliation performed by pharmacy medication reconciliations profile grinder technician and/or nursing. Patients Allergies have been reviewed. Allergies Allergies Coded Allergies NKANo Known Allergies (Verified Allergy, Unknown, 04/10/07) Past Onftjfz-Jqspdo-Qaqszb Hx Patient Social History Tobacco Use?: No Substance use?: Yes Substance type: Amphetamines, Methamphetamine Pt feels they are or have been: No Immunizations Up To Date First/Initial COVID19 Vaccinat: UNKNOWN Second COVID19 Vaccination Albert: UNKNOWN Tetanus Booster (TDap): Unknown Seasonal Allergies Seasonal Allergies: No Current Status Communicates: Verbally Primary Language: Georgian Preferred Spoken Language: Georgian Is interpretation needed?: No Past Medical History Seizure Disorder Sexually Transmitted Disease: No HIV/AIDS: No Anxiety Adverse Reaction/Blood Tranf: No Family Medical History No Pertinent Family Hx PT IS HOMELESS. ON 11/12/22, HE STATES HE LIVES IN [place]. HE HAS NO IDEA HOW HE GOT TO [place], OR EVEN THAT HE WAS IN [place]. SOCIAL HISTORY: -SMOKES -ETOH-- -DRUGS, EXTENSIVE HISTORY OF DRUG ABUSE--ON PREVIOUS RECORDS, PT HAS STATED (STATES HE HAS USED "EVERYTHING" --" PRESCRIPTION MEDS, THC, METH, COCAINE, OTHERS" DENIES HEROIN USE AND DENIES IV USE) UDS ON 11/12/22--+ FOR AMPHETAMINES / METHAMPHETAMINES; HE ALSO ADMITTED TO EATING KRATOM AT THAT VISIT. Review of Systems Constitutional: see HPI Physical Exam Physical Exam Vital Signs Vital Signs - First Documented 11/13/22 11/13/22 03:25 05:13 Temp 36.6 Pulse 137 Resp 20 B/P (MAP) 145/90 (108) Pulse Ox 98 O2 Delivery Room Air Capillary Refill : Less Than 3 Seconds Height, Weight, BMI Height: 5'6" Weight: 145lbs. 10.0oz. 66.290551yh; 24.51 BMI Method:Stated General Appearance: Anxious, Thin Respiratory: Lungs Clear, No Accessory Muscle Use Cardiovascular: Regular Rate, Rhythm Gastrointestinal: No Distended Neurologic/Psychiatric: Alert, Other (answered some questions but otherwise just stared ahead, fixated on picking apart finger attachment for pulse ox) Results Results/Procedures Labs Laboratory Tests 11/13/22 03:20 Patient resulted labs reviewed. Assessment/Plan Admission Diagnosis Suicidal Ideation Admission Status: Observation Assessment and Plan Suicidal Ideation Polysubstance abuse Alcohol dependence Sitter at bedside Ativan prn Add Thiamine Will hopefully be stable for mental health screen tomorrow CIWA Rhabdomyolysis CK trended down yetserday and slightly up today Continue IVF Diagnosis/Problems Diagnosis/Problems (1) Alcohol dependence (2) Polysubstance abuse Status: Acute (3) Rhabdomyolysis Status: Acute (4) Passive suicidal ideations Status: Acute MARIKA OCHOA MD Nov 13, 2022 8:25 am
[2022-11-13] MEDS ORDERED: ANTACID SUSP 30 ML UDC (MYLANTA) PO PRN (08:30)
[2022-11-13] MEDS ORDERED: LORazepam INJ 2 MG/ML (ATIVAN) VIAL IM/IV PRN (08:30)
[2022-11-13] MEDS ORDERED: 1/2 NS IV SOLUTION 1,000 ML IV PRN (08:30)
[2022-11-13] MEDS ORDERED: SENNA W/DOCUSATE (SENOKOT S) TABLET PO PRN (08:30)
[2022-11-13] MEDS ORDERED: LORazepam 1 MG (ATIVAN) TAB PO PRN (08:30)
[2022-11-13] MEDS ORDERED: ONDANSETRON 4 MG (ZOFRAN) ORAL DISSOLVE TAB SL PRN (08:30)
[2022-11-13] MEDS ORDERED: ONDANSETRON 4 MG/2 ML (SDV) Z0FRAN IV PRN (08:30)
[2022-11-13] MEDS ORDERED: D5 1/2 NS 1000 ML IV SOLUTION 1,000 ML IV PRN (08:30)
[2022-11-13] MEDS: LORazepam INJ 2 MG/ML (ATIVAN) VIAL IV PRN ×3 (09:42→23:36)
[2022-11-13 09:47] LABS: BILIRUBIN,URINE NEGATIVE (NEGATIVE); CLARITY,URINE SL CLOUDY; COLOR,URINE YELLOW; GLUCOSE, URINE (UA) NEGATIVE (NEGATIVE); KETONES,URINE 1+ (NEGATIVE); LEUKOCYTE ESTERASE ,URINE NEGATIVE (NEGATIVE); NITRITE,URINE NEGATIVE (NEGATIVE); PH,URINE 6.5 (5-9); PROTEIN,URINE NEGATIVE (NEGATIVE)
[2022-11-13 09:56] LABS: BACTERIA,URINE NEGATIVE /HPF; RBC,URINE RARE /HPF; WBC,URINE RARE /HPF
[2022-11-13 10:06] LABS: AMPHETAMINE SCREEN, URINE POSITIVE (NEGATIVE); BARBITURATE SCREEN URINE NEGATIVE (NEGATIVE); BENZODIAZEPINES SCREEN URINE POSITIVE (NEGATIVE); CANNABINOID SCREEN, URINE POSITIVE (NEGATIVE); COCAINE SCREEN URINE NEGATIVE (NEGATIVE); METHADONE STAT NEGATIVE (NEGATIVE); OPIATE SCREEN URINE NEGATIVE (NEGATIVE); OXYCODONE STAT NEGATIVE (NEGATIVE); PROPOXYPHENE STAT NEGATIVE (NEGATIVE); TRICYCLIC ANTIDEPRESSANTS SCRE NEGATIVE (NEGATIVE)
[2022-11-13] MEDS: FOLIC ACID 1 MG TAB PO SCH (10:20)
--- NOTE | 2022-11-13 10:59 | Tele-ICU Consult ---
History of Present Illness History of Present Illness Date Seen by Provider: Nov 13, 2022 Time Seen by Provider: 10:58 Date of Admission History of Present Illness (Tele-ICU Physician , consultation as per request of PCP Service provided via interactive audio and video telecommunications E-CARE system to a patient admitted to ICU bed in [facility]. Available chart/ vitals / labs / Images reviewed H&P is from ER notes Patient's information available about PMH, Shx, Fhx allergy reviewed inEMR. ROS as per chart and RN report Now in ICU, hemodynamically stable Video assessment done using teleICU camera, rest of exam as per RN Discussed with RN. Consultants: Hospital course: (11/12) 37y/o M admitted with substance abuse, altered behavior & rhabdo. A dmitted to taking Kratom or Flakka(bath salts). (+) Tox screen-amphetamines & methamphetamines. Track urrutia noted. Posion control notified. 11/12 at night , signed off AMA, but was readmitted right away with siucidal thouths and confusional state 11/13- on CIWA , sitter , AOx1 A/P Agitation/ confusion / delirium - presumed induced by illicit drugs ( + amph , + metamp , expand tox screen pen ding ) + withrawal ? - CT of the head and cervical spine - no bleed or Fr 11/12 - benzo prn Rhabdomyolysis, mild CPK 2 K on admission - hydration , replace lytes Seizure dz vs withdrowal Sz -benzo for now prn , monitor for sz Leukocytosis - suspect reactive CHRONIC ALCOHOL USE/ ILLICIT DRUG USE - thiamine and folate - CIWA Siucidal - sitter , phych assesment as per bedside Lines : , (Central Line Necessity Reviewed) Tam: OG: Nutrition: Analgesia: Anxiety/ delirium VTE Prophylaxis: scd Stress Ulcer Prophylaxis: na Plans in collaboration with bedside consultants and IM MDs. Discussed with RN to reach out if any questions or concerns A total of 15 minutes of critical care time was devoted to this patient today, required to treat and/or prevent further deterioration of critical care condition ( as above ) . I am remotely monitoring this patient from another state. I am unable to do the bedside exam, and history/physical and pertinent information is taken from other notes in the computer and bedside staff. . Allergies and Home Medications Allergies Coded Allergies: NKANo Known Allergies (Verified Allergy, Unknown, 04/10/07) Past Medical/Social/Family Hx Patient Social History Tobacco Use?: No Substance use?: Yes Substance type: Amphetamines, Methamphetamine Pt stated abuse/neglect: No Immunizations Up To Date Influenza Vaccine Up-to-Date: No; Not Current First/Initial COVID19 Vaccinat: UNKNOWN Second COVID19 Vaccination Albert: UNKNOWN Tetanus Booster (TDap): Unknown Current Status Communicates: Verbally Primary Language: Romanian Preferred Spoken Language: Romanian Is interpretation needed?: No Family Medical History Family Hx: PT IS HOMELESS. ON 11/12/22, HE STATES HE L[place]ES [place]. HE HAS NO IDEA HOW HE GOT TO [place], OR EVEN THAT HE WAS IN [place]. SOCIAL HISTORY: -SMOKES -ETOH-- -DRUGS, EXTENSIVE HISTORY OF DRUG ABUSE--ON PREVIOUS RECORDS, PT HAS STATED (STATES HE HAS USED "EVERYTHING" --" PRESCRIPTION MEDS, THC, METH, COCAINE, OTHERS" DENIES HEROIN USE AND DENIES IV USE) UDS ON 11/12/22--+ FOR AMPHETAMINES / METHAMPHETAMINES; HE ALSO ADMITTED TO EATING KRATOM AT THAT VISIT. Review of Systems Constitutional: see HPI Focused Exam Height, Weight, BMI Height: 5'6" Weight: 145lbs. 10.0oz. 66.785860jr; 24.51 BMI Method:Stated Exam Exam Patient acknowledged, consented, and participated in this virtual visit which was conducted using real time audio/video Vital Signs Date Time Temp Pulse Resp B/P (MAP) Pulse Ox O2 Delivery O2 Flow Rate FiO2 11/13/22 10:00 90 15 Room Air 11/13/22 09:00 92 22 134/80 (97) Room Air 11/13/22 08:07 104 11/13/22 08:00 99 21 132/104 (119) 93 Room Air 11/13/22 08:00 99 Room Air 11/13/22 07:55 36.6 11/13/22 07:00 90 16 140/95 (109) 97 Room Air 11/13/22 06:30 99 22 99 Room Air 11/13/22 06:00 74 17 138/89 (105) 99 Room Air 11/13/22 05:45 87 17 99 Room Air 11/13/22 05:30 97 22 149/101 (117) 99 Room Air 11/13/22 05:20 99 Room Air 11/13/22 05:13 36.8 81 18 161/95 (117) 98 Room Air 11/13/22 03:25 36.6 137 20 145/90 (108) I & O 11/13/22 07:00 Intake Total 0 ml Output Total 400 ml Balance -400 ml Height & Weight Height: 5'6" Weight: 145lbs. 10.0oz. 66.484571hj; 24.51 BMI Method:Stated General Appearance: No Apparent Distress, WD/WN, Other (PT WALKS UPRIGHT WITH STEADY GAIT. PT IS CONSTANTLY PICKING AT AND RIPPING THE SWEATPANTS HE IS WEARING, AND EVENTUALLY HE COMPLETELY RIPPED THE SWEATPANTES INTO A MULTITUDE OF PIECES, WELL THE DISPOSABLE UNDERWEAR HE WAS WEARING. ) HEENT: PERRL/EOMI Neck: Normal Inspection Respiratory: Normal Breath Sounds Cardiovascular: Tachycardia Capillary Refill: Less Than 3 Seconds Extremity: Normal Capillary Refill, Normal Inspection, No Pedal Edema Neurologic/Psychiatric: Alert, No Motor/Sensory Deficits, Other (MENTATION AND BEHAVIOR NOTED ABOVE. ) Skin: Normal Color, Warm/Dry Results Lab Laboratory Tests 11/13/22 03:20 Assessment/Plan Assessment/Plan 1 RALPH GOOD MD Nov 13, 2022 10:59
[2022-11-14] MEDS: D5 1/2 NS W/KCL 20 MEQ/L 1,000 ML IV SCH (03:16)
[2022-11-14 04:23] LABS: BASOPHILS # (AUTO) 0.1 10^3/uL (0.0-0.1); BASOPHILS % (AUTO) 1 % (0-10); EOSINOPHILS # (AUTO) 0.1 10^3/uL (0.0-0.3); EOSINOPHILS % (AUTO) 2 % (0-10); HEMATOCRIT 38 % (40-54); HEMOGLOBIN 12.7 g/dL (13.3-17.7); LYMPHOCYTES # (AUTO) 1.3 10^3/uL (1.0-4.0); LYMPHOCYTES % (AUTO) 19 % (12-44); MEAN CORPUSCULAR HEMOGLOBIN 28 pg (25-34); MEAN CORPUSCULAR HGB CONC 33 g/dL (32-36); MEAN CORPUSCULAR VOLUME 85 fL (80-99); MEAN PLATELET VOLUME 9.9 fL (9.0-12.2); MONOCYTES # (AUTO) 0.6 10^3/uL (0.0-1.0); MONOCYTES % (AUTO) 9 % (0-12); NEUTROPHILS # (AUTO) 4.7 10^3/uL (1.8-7.8); NEUTROPHILS % (AUTO) 69 % (42-75); PLATELET COUNT 293 10^3/uL (130-400); WHITE BLOOD COUNT 6.8 10^3/uL (4.3-11.0)
[2022-11-14 04:36] LABS: POTASSIUM 4.2 MMOL/L (3.6-5.0)
[2022-11-14 04:37] LABS: CALCIUM 8.4 MG/DL (8.5-10.1)
[2022-11-14 04:38] LABS: TOTAL PROTEIN 5.3 GM/DL (6.4-8.2)
[2022-11-14 04:40] LABS: BILIRUBIN,TOTAL 0.5 MG/DL (0.1-1.0)
[2022-11-14 04:41] LABS: PHOSPHORUS 2.6 MG/DL (2.3-4.7)
[2022-11-14 04:42] LABS: CREATININE SERUM 0.75 MG/DL (0.60-1.30)
[2022-11-14 04:44] LABS: MAGNESIUM 1.9 MG/DL (1.6-2.4)
[2022-11-14] MEDS: LORazepam INJ 2 MG/ML (ATIVAN) VIAL IV PRN ×2 (06:48→20:22)
[2022-11-14] MEDS: FOLIC ACID 1 MG TAB PO SCH (08:00)
[2022-11-14] MEDS: MULTIVIT W/MINERALS TAB (THERAGRAN M) PO SCH (08:00)
[2022-11-14] MEDS: THIAMINE 100 MG (VITAMIN B-1) TAB PO SCH (08:00)
--- NOTE | 2022-11-14 08:20 | Tele-ICU Progress Note ---
Progress Note video rounds completed 37y/o male admitted with suicidal ideation and aggressive behavior Has hx of substance abuse with meth Currently sleeping and comfortable with normal hemodynamics PLAN: continue obs Pysch eval Focused Exam Height, Weight, BMI Height: 5'6" Weight: 145lbs. 10.0oz. 66.252246cb; 24.57 BMI Method:Stated Labs Laboratory Tests 11/14/22 03:47 Results Results/Procedures Labs Laboratory Tests 11/13/22 03:20 11/14/22 03:47 Patient resulted labs reviewed. Results Labs Labs Laboratory Tests 11/13/22 09:30: Urine Color YELLOW, Urine Clarity SL CLOUDY, Urine pH 6.5, Urine Specific [place] 1.015L, Urine Protein NEGATIVE, Urine Glucose (UA) NEGATIVE, Urine Ketones 1+H, Urine Nitrite NEGATIVE, Urine Bilirubin NEGATIVE, Urine Urobilinogen 1.0, Urine Leukocyte Esterase NEGATIVE, Urine RBC (Auto) NEGATIVE, Urine RBC RARE, Urine WBC RARE, Urine Crystals NONE, Urine Bacteria NEGATIVE, Urine Casts NONE, Urine Mucus NEGATIVE, Urine Culture Indicated NO, Urine Opiates Screen NEGATIVE, Urine Oxycodone Screen NEGATIVE, Urine Methadone Screen NEGATIVE, Urine Propoxyphene Screen NEGATIVE, Urine Barbiturates Screen NEGATIVE, Ur Tricyclic Antidepressants Screen NEGATIVE, Urine Phencyclidine Screen NEGATIVE, Urine Amphetamines Screen POSITIVEH, Urine Methamphetamines Screen POSITIVEH, Urine Benzodiazepines Screen POSITIVEH, Urine Cocaine Screen N EGATIVE, Urine Cannabinoids Screen POSITIVEH 11/13/22 11:51: Glucometer 106 11/13/22 17:31: Glucometer 99 11/13/22 23:37: Glucometer 101 11/14/22 03:47: White Blood Count 6.8, Red Blood Count 4.51, Hemoglobin 12.7L, Hematocrit 38L, Mean Corpuscular Volume 85, Mean Corpuscular Hemoglobin 28, Mean Corpuscular Hemoglobin Concent 33, Red Cell Distribution Width 13.3, Platelet Count 293, Mean Platelet Volume 9.9, Immature Granulocyte % (Auto) 0, Neutrophils (%) (Auto) 69, Lymphocytes (%) (Auto) 19, Monocytes (%) (Auto) 9, Eosinophils (%) (Auto) 2, Basophils (%) (Auto) 1, Neutrophils # (Auto) 4.7, Lymphocytes # (Auto) 1.3, Monocytes # (Auto) 0.6, Eosinophils # (Auto) 0.1, Basophils # (Auto) 0.1, Immature Granulocyte # (Auto) 0.0, Sodium Level 140, Potassium Level 4.2, Chloride Level 110H, Carbon Dioxide Level 21, Anion Gap 9, Blood Urea Nitrogen 5L, Creatinine 0.75, Estimat Glomerular Filtration Rate 121, BUN/Creatinine Ratio 7, Glucose Level 92, Calcium Level 8.4L, Corrected Calcium 9.2, Phosphorus Level 2.6, Magnesium Level 1.9, Total Bilirubin 0.5, Aspartate Amino Transf (AST/SGOT) 34, Alanine Aminotransferase (ALT/SGPT) 25, Alkaline Phosphatase 60, Total Creatine Kinase 712H, Creatine Kinase MB 5.0, Total Protein 5.3L, Albumin 3.0L WERNER SHAH MD Nov 14, 2022 08:20
--- NOTE | 2022-11-14 09:53 | Progress Note - Hospitalist ---
Subjective HPI/CC On Admission Date Seen by Provider: Nov 14, 2022 Patient is a 37-year-old male known to me from recent admission yesterday who presented to the emergency department by police due to suicidal ideation. He was admitted yesterday due to rhabdomyolysis from methamphetamine use. He left AMA but the police were called due to his remarks regarding suicidal ideation. The police brought him back in for evaluation. His CK was still found to be quite elevated at 1800. He still endorses suicidal ideation at this time but really does not answer many other questions. His history is limited and he is fixated on ripping apart the pulse oximetery attachment in his hand. Subjective/Events-last exam Pt sleeping soundly in bed. No complaints but did not really answer any questions. He did open eyes when I spoke loudly too him and then he went right back to sleep. RN reports similar overnight but when awake quite anxious and scoring high on CIWA assess. (Up to 15) Objective Exam Vital Signs Vital Signs Date Time Temp Pulse Resp B/P (MAP) Pulse Ox O2 Delivery O2 Flow Rate FiO2 11/14/22 08:00 86 14 105/68 (80) 100 Room Air 11/14/22 07:48 36.2 Capillary Refill : Less Than 3 Seconds General Appearance: Other (sleeping soundly, no distress, less anxious than yesterday) Respiratory: Lungs Clear Cardiovascular: Regular Rate, Rhythm Skin: Tattoos/Piercings Results/Procedures Lab Laboratory Tests 11/14/22 03:47 Patient resulted labs reviewed. Assessment/Plan Assessment and Plan Assess & Plan/Chief Complaint Suicidal Ideation Polysubstance abuse Alcohol dependence Sitter at bedside Ativan prn Thiamine CIWA assess Would not be able to participate in mental health screening today- hopefully tomorrow Rhabdomyolysis CK down significantly DC IVF Stable for DC to psych unit from this aspect but still needs to be able to participate in screen Diagnosis/Problems Diagnosis/Problems (1) Alcohol dependence (2) Polysubstance abuse Status: Acute (3) Rhabdomyolysis Status: Acute (4) Passive suicidal ideations Status: Acute MARYLIN BRAGG MD Nov 14, 2022 09:53
[2022-11-14] MEDS ORDERED: ACETAMINOPHEN 500 MG TAB (TYLENOL) PO PRN (13:15)
[2022-11-14] MEDS ORDERED: ACETAMINOPHEN 500 MG TAB (TYLENOL) ONE (13:17)
[2022-11-15 05:11] LABS: BASOPHILS # (AUTO) 0.1 10^3/uL (0.0-0.1); BASOPHILS % (AUTO) 1 % (0-10); EOSINOPHILS # (AUTO) 0.3 10^3/uL (0.0-0.3); EOSINOPHILS % (AUTO) 3 % (0-10); HEMATOCRIT 43 % (40-54); HEMOGLOBIN 14.3 g/dL (13.3-17.7); LYMPHOCYTES # (AUTO) 1.6 10^3/uL (1.0-4.0); LYMPHOCYTES % (AUTO) 21 % (12-44); MEAN CORPUSCULAR HEMOGLOBIN 28 pg (25-34); MEAN CORPUSCULAR HGB CONC 34 g/dL (32-36); MEAN CORPUSCULAR VOLUME 85 fL (80-99); MEAN PLATELET VOLUME 9.5 fL (9.0-12.2); MONOCYTES # (AUTO) 0.7 10^3/uL (0.0-1.0); MONOCYTES % (AUTO) 10 % (0-12); NEUTROPHILS % (AUTO) 65 % (42-75); PLATELET COUNT 324 10^3/uL (130-400); WHITE BLOOD COUNT 7.7 10^3/uL (4.3-11.0)
[2022-11-15 05:22] LABS: ALBUMIN 3.3 GM/DL (3.2-4.5)
[2022-11-15 05:24] LABS: CALCIUM 8.6 MG/DL (8.5-10.1)
[2022-11-15 05:25] LABS: TOTAL PROTEIN 5.9 GM/DL (6.4-8.2)
[2022-11-15 05:27] LABS: BILIRUBIN,TOTAL 0.3 MG/DL (0.1-1.0)
[2022-11-15 05:28] LABS: PHOSPHORUS 3.4 MG/DL (2.3-4.7)
[2022-11-15 05:29] LABS: CREATININE SERUM 0.78 MG/DL (0.60-1.30)
[2022-11-15] MEDS: MULTIVIT W/MINERALS TAB (THERAGRAN M) PO SCH (07:36)
[2022-11-15] MEDS: THIAMINE 100 MG (VITAMIN B-1) TAB PO SCH (07:36)
[2022-11-15] MEDS: FOLIC ACID 1 MG TAB PO SCH (07:37)
--- NOTE | 2022-11-15 10:18 | Tele-ICU Progress Note ---
Subjective Date Seen by a Provider: Nov 15, 2022 Subjective/Events-last exam (Tele-ICU Physician , Progress Note ) Service provided via interactive audio and video telecommunications E-CARE system to a patient admitted to ICU bed in [facility]. Patient is seen today due to persistent need of ICU care Available chart/ vitals / labs / Images reviewed Video assessment done using teleICU camera, rest of exam as per RN Discussed with RN Events overnight : Afebrile hemodynamically stable Drips: Pressors- no Consultants: Hospital course: (11/12) 37y/o M admitted with substance abuse, altered behavior & rhabdo. Admitted to taking Kratom or Flakka(bath salts). (+) Tox screen-amphetamines & methamphetamines. Track urrutia noted. Posion control notified. 11/12 at night , signed off AMA, but was readmitted right away with siucidal thouths and confusional state 11/13- on CIWA , sitter , AOx1 A/P Agitation/ confusion / delirium - presumed induced by illicit drugs ( + amph , + metamp , expand tox screen pending ) + withrawal ? - CT of the head and cervical spine - no bleed or Fr 11/12 - benzo prn Rhabdomyolysis, mild CPK 2 K on admission -resolved Seizure dz vs withdrowal Sz -benzo for now prn , monitor for sz Leukocytosis - suspect reactive , off abx - resolved CHRONIC ALCOHOL USE/ ILLICIT DRUG USE - thiamine and folate - CIWA - no need for benso for 11 h Siucidal - sitter , phych assesment as per bedside Lines : , (Central Line Necessity Reviewed) Tam: OG: Nutrition: Analgesia: Anxiety/ delirium VTE Prophylaxis: scd Stress Ulcer Prophylaxis: na Plans in collaboration with bedside consultants and IM MDs. Discussed with RN to reach out if any questions or concerns A total of 5 minutes of critical care time was devoted to this patient today, required to treat and/or prevent further deterioration of critical care condition ( as above ) . I am remotely monitoring this patient from another state. I am unable to do the bedside exam, and history/physical and pertinent information is taken from other notes in the computer and bedside staff. . Sepsis Event Evaluation Height, Weight, BMI Height: 5'6" Weight: 145lbs. 10.0oz. 66.413049hi; 24.57 BMI Method:Stated Exam Exam Patient acknowledged, consented, and participated in this virtual visit which was conducted using real time audio/video Vital Signs Date Time Temp Pulse Resp B/P (MAP) Pulse Ox O2 Delivery O2 Flow Rate FiO2 11/15/22 10:00 75 12 106/73 (84) 90 Room Air 11/15/22 09:00 79 12 108/70 (83) 95 Room Air 11/15/22 08:46 Room Air 11/15/22 08:00 97 Room Air 11/15/22 08:00 89 15 118/74 (89) 98 Room Air 11/15/22 07:44 36.8 11/15/22 07:14 86 11/15/22 07:00 72 12 161/103 (122) 98 Room Air 11/15/22 06:00 71 12 115/78 (90) 92 Room Air 11/15/22 05:00 80 12 106/74 (85) 100 Room Air 11/15/22 04:03 36.8 11/15/22 04:00 95 Room Air 11/15/22 04:00 68 12 108/72 (81) 99 Room Air 11/15/22 03:00 74 20 102/63 (80) 99 Room Air 11/15/22 02:00 69 86/53 (66) 99 Room Air 11/15/22 01:00 62 11/15/22 01:00 64 21 106/77 (82) 99 Room Air 11/15/22 00:00 36.5 11/15/22 00:00 98 Room Air 11/15/22 00:00 71 104/69 (80) 97 Room Air 11/14/22 23:00 63 28 105/75 (86) 99 Room Air 11/14/22 22:00 78 17 110/73 (85) 96 Room Air 11/14/22 21:30 36.8 11/14/22 21:12 36.4 11/14/22 21:03 36.2 11/14/22 21:00 82 15 114/70 (80) 96 Room Air 11/14/22 20:14 36.8 11/14/22 20:00 98 Room Air 11/14/22 20:00 73 14 115/68 (80) 97 Room Air 11/14/22 19:13 36.7 11/14/22 19:00 90 15 107/72 (83) 95 Room Air 11/14/22 19:00 90 11/14/22 18:00 90 19 119/88 (98) 99 Room Air 11/14/22 17:00 96 15 112/74 (87) 99 Room Air 11/14/22 16:00 87 13 116/65 (82) 95 Room Air 11/14/22 16:00 98 Room Air 11/14/22 15:30 82 21 107/70 (82) 98 Room Air 11/14/22 15:07 36.9 11/14/22 15:00 90 17 98 Room Air 11/14/22 14:43 36.4 11/14/22 14:00 59 13 98 Room Air 11/14/22 13:40 36.4 11/14/22 13:19 78 11/14/22 13:00 80 15 121/85 (97) 98 Room Air 11/14/22 12:04 36.2 11/14/22 12:00 78 16 112/86 (95) 97 Room Air 11/14/22 12:00 97 Room Air 11/14/22 11:00 76 11 103/69 (80) 97 Room Air I & O 11/15/22 06:59 Intake Total 1855 ml Output Total 3950 ml Balance -2095 ml Height & Weight Height: 5'6" Weight: 145lbs. 10.0oz. 66.852393un; 24.57 BMI Method:Stated General Appearance: Other (sleeping soundly, no distress, less anxious than yesterday) HEENT: PERRL/EOMI Neck: Normal Inspection Respiratory: Lungs Clear Cardiovascular: Regular Rate, Rhythm Capillary Refill: Less Than 3 Seconds Extremity: Normal Capillary Refill, Normal Inspection, No Pedal Edema Neurologic/Psychiatric: Alert, No Motor/Sensory Deficits, Other (MENTATION AND BEHAVIOR NOTED ABOVE. ) Skin: Tattoos/Piercings Results Lab Laboratory Tests 11/14/22 03:47 11/15/22 04:40 Assessment/Plan Assessment/Plan 1 RALPH GOOD MD Nov 15, 2022 10:18
[2022-11-15] MEDS: LORazepam INJ 2 MG/ML (ATIVAN) VIAL IVP PRN (17:54)
--- NOTE | 2022-11-15 18:48 | Progress Note - Hospitalist ---
Subjective HPI/CC On Admission Date Seen by Provider: Nov 15, 2022 Time Seen by Provider: 09:55 Patient is a 37-year-old male known to me from recent admission yesterday who presented to the emergency department by police due to suicidal ideation. He was admitted yesterday due to rhabdomyolysis from methamphetamine use. He left AMA but the police were called due to his remarks regarding suicidal ideation. The police brought him back in for evaluation. His CK was still found to be quite elevated at 1800. He still endorses suicidal ideation at this time but really does not answer many other questions. His history is limited and he is fixated on ripping apart the pulse oximetery attachment in his hand. Subjective/Events-last exam He reports indifference whether he lives or dies. He says he overdosed thinking he would . His affect is flat. Objective Exam Vital Signs Vital Signs Date Time Temp Pulse Resp B/P (MAP) Pulse Ox O2 Delivery O2 Flow Rate FiO2 11/15/22 16:00 98 Room Air 11/15/22 16:00 103 17 119/80 (93) 11/15/22 15:14 36.8 Capillary Refill : Less Than 3 Seconds General Appearance: No Apparent Distress, WD/WN Respiratory: Lungs Clear, No Respiratory Distress Cardiovascular: Regular Rate, Rhythm, No Murmur Gastrointestinal: Normal Bowel Sounds, Soft Extremity: Normal Inspection, No Pedal Edema Neurologic/Psychiatric: Alert, Depressed Affect (flat affect) Skin: Normal Color, Warm/Dry Results/Procedures Lab Laboratory Tests 11/15/22 04:40 Patient resulted labs reviewed. Assessment/Plan Assessment and Plan Assess & Plan/Chief Complaint Suicidal Ideation Polysubstance abuse Alcohol dependence Rhabdomyolysis CK improved Sitter at bedside Mental health screening today, deemed appropriate for inpatient psych Referral sent to [facility], will check back this evening for possible available bed Stable for discharge to psych unit Diagnosis/Problems Diagnosis/Problems (1) Suicidal ideation Status: Acute (2) Intentional overdose Status: Acute Qualifiers: Encounter type: initial encounter Qualified Codes: T50.902A - Poisoning by unspecified drugs, medicaments and biological substances, intentional self-harm, initial encounter (3) Alcohol abuse Status: Acute (4) Rhabdomyolysis Status: Acute Qualifiers: Rhabdomyolysis type: non-traumatic Qualified Codes: M62.82 - Rhabdomyol WILLIS Mckenzie MD Nov 15, 2022 18:47
[2022-11-16 03:59] LABS: BASOPHILS # (AUTO) 0.1 10^3/uL (0.0-0.1); BASOPHILS % (AUTO) 1 % (0-10); EOSINOPHILS # (AUTO) 0.2 10^3/uL (0.0-0.3); EOSINOPHILS % (AUTO) 3 % (0-10); HEMATOCRIT 44 % (40-54); HEMOGLOBIN 14.6 g/dL (13.3-17.7); LYMPHOCYTES # (AUTO) 1.8 10^3/uL (1.0-4.0); LYMPHOCYTES % (AUTO) 22 % (12-44); MEAN CORPUSCULAR HEMOGLOBIN 28 pg (25-34); MEAN CORPUSCULAR HGB CONC 33 g/dL (32-36); MEAN CORPUSCULAR VOLUME 85 fL (80-99); MEAN PLATELET VOLUME 9.6 fL (9.0-12.2); MONOCYTES # (AUTO) 0.8 10^3/uL (0.0-1.0); MONOCYTES % (AUTO) 10 % (0-12); NEUTROPHILS # (AUTO) 5.4 10^3/uL (1.8-7.8); NEUTROPHILS % (AUTO) 64 % (42-75); PLATELET COUNT 325 10^3/uL (130-400); WHITE BLOOD COUNT 8.3 10^3/uL (4.3-11.0)
[2022-11-16 04:07] LABS: ALBUMIN 3.4 GM/DL (3.2-4.5)
[2022-11-16 04:08] LABS: POTASSIUM 4.3 MMOL/L (3.6-5.0)
[2022-11-16 04:09] LABS: CALCIUM 8.7 MG/DL (8.5-10.1)
[2022-11-16 04:10] LABS: TOTAL PROTEIN 6.1 GM/DL (6.4-8.2)
[2022-11-16 04:12] LABS: BILIRUBIN,TOTAL 0.2 MG/DL (0.1-1.0)
[2022-11-16 04:13] LABS: PHOSPHORUS 4.2 MG/DL (2.3-4.7)
[2022-11-16 04:14] LABS: CREATININE SERUM 0.87 MG/DL (0.60-1.30)
[2022-11-16 04:17] LABS: MAGNESIUM 2.1 MG/DL (1.6-2.4)
[2022-11-16] MEDS: THIAMINE 100 MG (VITAMIN B-1) TAB PO SCH (08:01)
[2022-11-16] MEDS: FOLIC ACID 1 MG TAB PO SCH (08:01)
[2022-11-16] MEDS: MULTIVIT W/MINERALS TAB (THERAGRAN M) PO SCH (08:01)
[2022-11-16 08:13] VITALS: BP 110/69
[2022-11-16 09:17] VITALS: BP 110/77
[2022-11-16 11:10] VITALS: BP 125/76
[2022-11-16] MEDS: LORazepam INJ 2 MG/ML (ATIVAN) VIAL IV PRN (12:36)
[2022-11-16 15:04] VITALS: BP 107/78
--- NOTE | 2022-11-16 18:20 | Progress Note - Hospitalist ---
Subjective HPI/CC On Admission Date Seen by Provider: Nov 16, 2022 Time Seen by Provider: 11:10 Patient is a 37-year-old male known to me from recent admission yesterday who presented to the emergency department by police due to suicidal ideation. He was admitted yesterday due to rhabdomyolysis from methamphetamine use. He left AMA but the police were called due to his remarks regarding suicidal ideation. The police brought him back in for evaluation. His CK was still found to be quite elevated at 1800. He still endorses suicidal ideation at this time but really does not answer many other questions. His history is limited and he is fixated on ripping apart the pulse oximetery attachment in his hand. Subjective/Events-last exam He was feeling a little shaky overnight. He has no complaints at this time. Objective Exam Vital Signs Vital Signs Date Time Temp Pulse Resp B/P (MAP) Pulse Ox O2 Delivery O2 Flow Rate FiO2 11/16/22 15:04 36.9 94 18 107/78 (88) 98 Room Air Capillary Refill : Less Than 3 Seconds General Appearance: No Apparent Distress, WD/WN Respiratory: Lungs Clear, No Respiratory Distress Cardiovascular: Regular Rate, Rhythm, No Murmur Gastrointestinal: Normal Bowel Sounds, Soft Extremity: Normal Inspection, No Pedal Edema Neurologic/Psychiatric: Alert, No Motor/Sensory Deficits, Depressed Affect (flat) Skin: Normal Color, Warm/Dry Results/Procedures Lab Laboratory Tests 11/16/22 03:38 Patient resulted labs reviewed. Assessment/Plan Assessment and Plan Assess & Plan/Chief Complaint Suicidal Ideation Polysubstance abuse Alcohol dependence Sitter at bedside Mental health screening 11/15 deemed appropriate for inpatient psych [facility] Rhabdomyolysis, resolved Diagnosis/Problems Diagnosis/Problems (1) Suicidal ideation Status: Acute (2) Intentional overdose Status: Acute Qualifiers: Encounter type: initial encounter Qualified Codes: T50.902A - Poisoning by unspecified drugs, medicaments and biological substances, intentional self-harm, initial encounter (3) Alcohol abuse Status: Acute (4) Rhabdomyolysis Status: Resolved Qualifiers: Rhabdomyolysis type: non-traumatic Qualified Codes: M62.82 - Rhabdomyolysis Resolution Date/Time: 11/16/22 @ 18:20 WILLIS BARNES MD Nov 16, 2022 18:20
[2022-11-16 19:06] VITALS: BP 127/71
[2022-11-16 23:50] VITALS: BP 95/51
[2022-11-17 04:00] VITALS: BP 108/57
[2022-11-17 05:26] LABS: BILIRUBIN,URINE NEGATIVE (NEGATIVE); CLARITY,URINE CLEAR; COLOR,URINE YELLOW; GLUCOSE, URINE (UA) NEGATIVE (NEGATIVE); KETONES,URINE NEGATIVE (NEGATIVE); LEUKOCYTE ESTERASE ,URINE NEGATIVE (NEGATIVE); NITRITE,URINE NEGATIVE (NEGATIVE); PROTEIN,URINE NEGATIVE (NEGATIVE)
[2022-11-17 05:32] LABS: BACTERIA,URINE NEGATIVE /HPF
[2022-11-17] MEDS: MULTIVIT W/MINERALS TAB (THERAGRAN M) PO SCH (06:02)
[2022-11-17 08:00] VITALS: BP 118/75
[2022-11-17] MEDS: FOLIC ACID 1 MG TAB PO SCH (09:28)
--- NOTE | 2022-11-17 11:54 | Progress Note - Hospitalist ---
Subjective HPI/CC On Admission Date Seen by Provider: Nov 17, 2022 Time Seen by Provider: 10:15 Patient is a 37-year-old male known to me from recent admission yesterday who presented to the emergency department by police due to suicidal ideation. He was admitted yesterday due to rhabdomyolysis from methamphetamine use. He left AMA but the police were called due to his remarks regarding suicidal ideation. The police brought him back in for evaluation. His CK was still found to be quite elevated at 1800. He still endorses suicidal ideation at this time but really does not answer many other questions. His history is limited and he is fixated on ripping apart the pulse oximetery attachment in his hand. Subjective/Events-last exam He denies active suicidal intent. He is worried he would harm himself if he goes home. He says he needs to "get my head right". Objective Exam Vital Signs Vital Signs Date Time Temp Pulse Resp B/P (MAP) Pulse Ox O2 Delivery O2 Flow Rate FiO2 11/17/22 08:00 36.6 62 18 118/75 (89) 98 Room Air Capillary Refill : Less Than 3 Seconds General Appearance: No Apparent Distress, WD/WN Respiratory: Lungs Clear, No Respiratory Distress Cardiovascular: Regular Rate, Rhythm, No Murmur Gastrointestinal: Normal Bowel Sounds, Soft Extremity: Normal Inspection, No Pedal Edema Neurologic/Psychiatric: Alert, Oriented x3, Depressed Affect (flat) Skin: Normal Color, Warm/Dry Results/Procedures Lab Patient resulted labs reviewed. Assessment/Plan Assessment and Plan Assess & Plan/Chief Complaint Suicidal Ideation Polysubstance abuse Alcohol dependence Sitter at bedside Mental health screening 11/15 deemed appropriate for inpatient psych Referrals sent, search expanded, awaiting accepting facility Stable for discharge to psych unit Rhabdomyolysis, resolved Diagnosis/Problems Diagnosis/Problems (1) Suicidal ideation Status: Acute (2) Intentional overdose Status: Acute Qualifiers: Encounter type: initial encounter Qualified Codes: T50.902A - Poisoning by unspecified drugs, medicaments and biological substances, intentional self-harm, initial encounter (3) Alcohol abuse Status: Acute (4) Rhabdomyolysis Status: Resolved Qualifiers: Rhabdomyolysis type: non-traumatic Qualified Codes: M62.82 - Rhabdomyolysis Resolution Date/Time: 11/16/22 @ 18:20 WILLIS BARNES MD Nov 17, 2022 11:53
[2022-11-17] MEDS: LORazepam INJ 2 MG/ML (ATIVAN) VIAL IV PRN (11:56)
[2022-11-17 12:00] VITALS: BP 108/70
[2022-11-17 19:06] VITALS: BP 130/66
[2022-11-18 00:09] VITALS: BP 112/74
[2022-11-18 02:58] VITALS: BP 98/62
[2022-11-18 03:06] VITALS: BP 98/62
[2022-11-18] MEDS: MULTIVIT W/MINERALS TAB (THERAGRAN M) PO SCH (06:55)
[2022-11-18 06:56] VITALS: BP 125/63
[2022-11-18 07:01] VITALS: BP 125/63
[2022-11-18] MEDS: FOLIC ACID 1 MG TAB PO SCH (09:16)
[2022-11-18 11:01] VITALS: BP 131/67
--- NOTE | 2022-11-18 11:08 | Discharge Summary ---
Discharge Summary Hospital Course Problems/Dx: (1) Suicidal ideation Status: Acute (2) Intentional overdose Status: Acute Qualifiers: Qualified Codes: T50.902A - Poisoning by unspecified drugs, medicaments and biological substances, intentional self-harm, initial encounter (3) Alcohol abuse Status: Acute (4) Rhabdomyolysis Status: Resolved Qualifiers: Qualified Codes: M62.82 - Rhabdomyolysis Hospital Course Date of Admission: Nov 13, 2022 at 04:25 Admission Diagnosis : Polysubstance overdose, suicidal ideation, rhabdomyolysis Family Physician/Provider: Shreyas Sandra DO Date of Discharge: 11/18/22 Discharge Diagnosis: Polysubstance overdose, suicidal ideation, rhabdomyolysis Hospital Course: Hung Kenney is a 37 year old male who presented after a polysubstance overdose. He says he had been doing drugs for a few days. He thought the police were coming to get him and took all of his remaining drugs. He was unable to say what all he took. He thought taking them would end his life and he did not care if he . He was found to be in rhabdomyolysis which improved with IV fluids. He continued to have suicidal ideation. He thought he would harm himself if he was sent home. He was screened by [facility] and deemed to require inpatient psychiatry services. He was transferred to [facility] for continued treatment. Labs and Pending Lab Test: Home Meds Active No Active Prescriptions or Reported Medications Assessment/Pt Instructions Transferred for inpatient psychiatric services Discharge Planning: >30 minutes discharge planning Discharge Instructions Discharge Diet: No Restrictions Activity as Tolerated: Yes Discharge Physical Examination Vital Signs Vital Signs Date Time Temp Pulse Resp B/P (MAP) Pulse Ox O2 Delivery O2 Flow Rate FiO2 11/18/22 11:01 36.6 77 18 131/67 (88) 97 Room Air General Appearance: No Apparent Distress, WD/WN Respiratory: Lungs Clear, No Respiratory Distress Cardiovascular: Regular Rate, Rhythm, No Murmur Extremity: Normal Inspection, No Pedal Edema Skin: Normal Color, Warm/Dry Neurologic/Psychiatric: Alert, Depressed Affect (flat) Allergies: Coded Allergies: NKANo Known Allergies (Verified Allergy, Unknown, 04/10/07) Discharge Summary Date of Admission Nov 13, 2022 at 04:25 Date of Discharge Discharge Date: Nov 18, 2022 Discharge Time: 13:30 Admission Diagnosis Suicidal Ideation Discharge Diagnosis Suicidal Ideation Polysubstance abuse Alcohol dependence Rhabdomyolysis, resolved (1) Suicidal ideation Status: Acute (2) Intentional overdose Status: Acute Qualifiers: Qualified Codes: T50.902A - Poisoning by unspecified drugs, medicaments and biological substances, intentional self-harm, initial encounter (3) Alcohol abuse Status: Acute (4) Rhabdomyolysis Status: Resolved Qualifiers: Qualified Codes: M62.82 - Rhabdomyolysis WILLIS BARNES MD Nov 18, 2022 11:08
== END 2022-11-18 13:12 | DRG 918 ==
LOC: EDUNIT# 03:13 → ER 03:16 → ICU 04:25 → 4TH 11-16 08:31
PROVIDERS: ADMIT Family Medicine; ATTEND Internal Medicine
DX: T50.992A Poisoning by other drugs, medicaments and biological substances, intentional self-harm, initial encounter (principal); M62.82 Rhabdomyolysis; R45.851 Suicidal ideations; F19.10 Other psychoactive substance abuse, uncomplicated; F10.20 Alcohol dependence, uncomplicated; Z20.822 Contact with and (suspected) exposure to COVID-19
CPT/HCPCS: 36415; 80053; 80306; 80320; 80329; 81000; 82550; 82553; 82947; 83735; 83874; 84100; 85025; 85652; 86141; 87636; 93005

== ENCOUNTER 2023-05-25 20:22 | Emergency (ER) | payer MEDICAID ==
[~2023-05-25] VITALS: Ht 167.7 cm; Wt 80.0 kg
[2023-05-25 20:34] VITALS: BP 144/93
[2023-05-25] MEDS ORDERED: NS IV 1000 ML 1,000 ML IV SCH (20:45)
[2023-05-25 21:03] LABS: BASOPHILS # (AUTO) 0.1 10^3/uL (0.0-0.1); BASOPHILS % (AUTO) 1 % (0-10); EOSINOPHILS # (AUTO) 0.1 10^3/uL (0.0-0.3); EOSINOPHILS % (AUTO) 1 % (0-10); HEMATOCRIT 46 % (40-54); HEMOGLOBIN 15.3 g/dL (13.3-17.7); LYMPHOCYTES # (AUTO) 2.1 10^3/uL (1.0-4.0); LYMPHOCYTES % (AUTO) 32 % (12-44); MEAN CORPUSCULAR HEMOGLOBIN 28 pg (25-34); MEAN CORPUSCULAR HGB CONC 34 g/dL (32-36); MEAN CORPUSCULAR VOLUME 84 fL (80-99); MEAN PLATELET VOLUME 10.1 fL (9.0-12.2); MONOCYTES # (AUTO) 0.5 10^3/uL (0.0-1.0); MONOCYTES % (AUTO) 7 % (0-12); NEUTROPHILS # (AUTO) 3.9 10^3/uL (1.8-7.8); NEUTROPHILS % (AUTO) 59 % (42-75); PLATELET COUNT 327 10^3/uL (130-400); WHITE BLOOD COUNT 6.6 10^3/uL (4.3-11.0)
--- NOTE | 2023-05-25 21:04 | ED General ---
General Chief Complaint: Detox Stated Complaint: WANTS DETOX Nursing Triage Note: Pt presents with need for medical detox clearance. Pt states he is trying to get into the addictions treatment center in [place] and the rifle case repairer told him that he needed to get medical detox. Pt states he drinks 10-12 4oz shooter bottles per day, states his last drink was at 11am yesterday morning. Pt has seizure hx, states he's epileptic, but has not taken keppra for past 3 years due to not liking the side effects. Source of Information: Patient Exam Limitations: No Limitations History of Present Illness Date Seen by Provider: May 25, 2023 Time Seen by Provider: 20:58 Initial Comments Patient is a 38-year-old male who presents ED for for medical detox. Was evaluated at [facility] in [place] today. Talked with her rifle case repairer and recommended medical detox. Patient has a history of epilepsy. Is recommended to take Keppra which she is not taking. Last seizure a week ago. Stopped alcohol yesterday morning. Drinks between 5-12 shooters of whiskey daily. Last drug use of meth smoking 2 days ago. Reports drug use intermittently. Patient reports a mild tremoring. Denies vomiting, diarrhea, abdominal pain, headache, visual changes, chest pain, shortness of breath or cough. Patient states medically he feels fine at this time. Typically his seizures is during the night. States he wakes up with muscle pain typically. Unclear if he actually does have a seizure. Allergies and Home Medications Allergies Coded Allergies: NKANo Known Allergies (Verified Allergy, Unknown, 04/10/07) Patient Home Medication List Home Medication List Reviewed: Yes Levetiracetam (Keppra) 500 Mg Tablet, 500 MG PO BID Prescribed by: HALLEY CELIS on 05/25/232219 Review of Systems Review of Systems Constitutional: No chills, No diaphoresis, No malaise, No weakness EENTM: No ear pain, No blurred vision, No double vision Respiratory: No cough, No dyspnea on exertion Cardiovascular: No chest pain, No edema Gastrointestinal: No abdominal pain, No diarrhea, No nausea, No vomiting Genitourinary: No decreased output, No discharge, No frequency, No hematuria Musculoskeletal: No back pain, No joint pain Skin: No change in color, No change in hair/nails All Other Systems Reviewed Negative Unless Noted: Yes Past [id number] Hx Immunizations Up To Date Tetanus Booster (TDap): Less than 5yrs First/Initial COVID19 Vaccinat: UNKNOWN Second COVID19 Vaccination Albert: UNKNOWN Third COVID19 Vaccination Date: UNKNOWN Seasonal Allergies Seasonal Allergies: No Past Medical History Surgery/Hospitalization HX: ON VISIT 11/12/22, ALL PMH IS FROM OLD RECORDS PT HAD SEVERAL VISITS FROM 3075-1102--MANY RELATED TO SEIZURES RELATED TO DRUG AND ALCOHOL ABUSE. DID HAVE REPORTED SEIZURES SMALL CHILD, BUT NO SIGNIFICANT PROBLEMS UNTIL DRUG AND ALCOHOL USE IN HIS TEENS. (STATES HE HAS USED "EVERYTHING" --" PRESCRIPTION MEDS, THC, METH, COCAINE, OTHERS" DENIES HEROIN USE AND DENIES IV USE) Neurological: Yes (POSSIBLY DRUG INDUCED?) Seizure Disorder Reproductive Disorders: No Sexually Transmitted Disease: No HIV/AIDS: No Psychosocial: Yes (POLYSUBSTANCE ABUSE) Anxiety Adverse Reaction/Blood Tranf: No Family Medical History No Pertinent Family Hx PT IS HOMELESS. ON 11/12/22, HE STATES HE LIVES IN [place]. HE HAS NO IDEA HOW HE GOT TO [place], OR EVEN THAT HE WAS IN [place]. SOCIAL HISTORY: -SMOKES -ETOH-- -DRUGS, EXTENSIVE HISTORY OF DRUG ABUSE--ON PREVIOUS RECORDS, PT HAS STATED (STATES HE HAS USED "EVERYTHING" --" PRESCRIPTION MEDS, THC, METH, COCAINE, OTHERS" DENIES HEROIN USE AND DENIES IV USE) UDS ON 11/12/22--+ FOR AMPHETAMINES / METHAMPHETAMINES; HE ALSO ADMITTED TO [facility] AT THAT VISIT. Physical Exam Vital Signs Vital Signs - First Documented 05/25/23 20:34 Temp 36.6 Pulse 91 Resp 16 B/P (MAP) 144/93 (110) Capillary Refill : Less Than 3 Seconds Height, Weight, BMI Height: 5'6" Weight: 145lbs. 10.0oz. [id number]; 28.00 BMI Method:Stated General Appearance: No Apparent Distress, WD/WN Eyes: Bilateral Eye Normal Inspection, Bilateral Eye PERRL, Bilateral Eye EOMI HEENT: PERRL/EOMI, TMs Normal, Normal ENT Inspection, Pharynx Normal Neck: Full Range of Motion, Normal Inspection, Non Tender, Supple Respiratory: Chest Non Tender, Lungs Clear, Normal Breath Sounds, No Accessory Muscle Use Cardiovascular: Regular Rate, Rhythm, No Edema, No Gallop, No JVD Gastrointestinal: Normal Bowel Sounds, No Organomegaly, No Pulsatile Mass, Non Tender Back: Normal Inspection, No CVA Tenderness, No Vertebral Tenderness Extremity: Normal Capillary Refill, Normal Inspection, Normal Range of Motion Neurologic/Psychiatric: Alert, Oriented x3, No Motor/Sensory Deficits, Normal Mood/Affect, diver assistant II-XII Norm as Tested Progress/Results/Core Measures Suspected Sepsis SIRS Temperature: Pulse: 91 Respiratory Rate: 16 Laboratory Tests 05/25/23 20:55: White Blood Count 6.6 Blood Pressure 144 /93 Mean: 110 Laboratory Tests 05/25/23 20:55: Creatinine 1.07, Platelet Count 327, Total Bilirubin 0.2 Results/Orders Lab Results Laboratory Tests Test 05/25/23 20:55 05/25/23 21:34 Range/Units White Blood Count 6.6 4.3-11.0 10^3/uL Red Blood Count 5.42 4.30-5.52 10^6/uL Hemoglobin 15.3 13.3-17.7 g/dL Hematocrit 46 40-54 % Mean Corpuscular Volume 84 80-99 fL Mean Corpuscular Hemoglobin 28 25-34 pg Mean Corpuscular Hemoglobin Concent 34 32-36 g/dL Red Cell Distribution Width 12.7 10.0-14.5 % Platelet Count 327 130-400 10^3/uL Mean Platelet Volume 10.1 9.0-12.2 fL Immature Granulocyte % (Auto) 0 % Neutrophils (%) (Auto) 59 42-75 % Lymphocytes (%) (Auto) 32 12-44 % Monocytes (%) (Auto) 7 0-12 % Eosinophils (%) (Auto) 1 0-10 % Basophils (%) (Auto) 1 0-10 % Neutrophils # (Auto) 3.9 1.8-7.8 10^3/uL Lymphocytes # (Auto) 2.1 1.0-4.0 10^3/uL Monocytes # (Auto) 0.5 0.0-1.0 10^3/uL Eosinophils # (Auto) 0.1 0.0-0.3 10^3/uL Basophils # (Auto) 0.1 0.0-0.1 10^3/uL Immature Granulocyte # (Auto) 0.0 0.0-0.1 10^3/uL Sodium Level 142 135-145 MMOL/L Potassium Level 3.9 3.6-5.0 MMOL/L Chloride Level 107 98-107 MMOL/L Carbon Dioxide Level 25 21-32 MMOL/L Anion Gap 10 5-14 MMOL/L Blood Urea Nitrogen 10 7-18 MG/DL Creatinine 1.07 0.60-1.30 MG/DL Estimat Glomerular Filtration Rate 92 BUN/Creatinine Ratio 9 Glucose Level 102 70-105 MG/DL Calcium Level 9.4 8.5-10.1 MG/DL Corrected Calcium 9.2 8.5-10.1 MG/DL Total Bilirubin 0.2 0.1-1.0 MG/DL Aspartate Amino Transf (AST/SGOT) 26 5-34 U/L Alanine Aminotransferase (ALT/SGPT) 51 0-55 U/L Alkaline Phosphatase 55 40-136 U/L Total Protein 6.8 6.4-8.2 GM/DL Albumin 4.2 3.2-4.5 GM/DL Salicylates Level < 5.0 L 5.0-20.0 MG/DL Acetaminophen Level < 10 L 10-30 UG/ML Serum Alcohol < 10 <10 MG/DL Urine Color YELLOW Urine Clarity CLEAR Urine pH 7.0 5-9 Urine Specific [place] 1.020 1.016-1.022 Urine Protein TRACE H NEGATIVE Urine Glucose (UA) NEGATIVE NEGATIVE Urine Ketones TRACE H NEGATIVE Urine Nitrite NEGATIVE NEGATIVE Urine Bilirubin NEGATIVE NEGATIVE Urine Urobilinogen 1.0 < = 1.0 MG/DL Urine Leukocyte Esterase NEGATIVE NEGATIVE Urine RBC (Auto) NEGATIVE NEGATIVE Urine RBC NEG /HPF Urine WBC NEG /HPF Urine Squamous Epithelial Cells RARE /HPF Urine Crystals NONE /LPF Urine Bacteria NEG /HPF Urine Casts NONE /LPF Urine Mucus SMALL H /LPF Urine Culture Indicated NO Urine Opiates Screen NEGATIVE NEGATIVE Urine Oxycodone Screen NEGATIVE NEGATIVE Urine Methadone Screen NEGATIVE NEGATIVE Urine Propoxyphene Screen NEGATIVE NEGATIVE Urine Barbiturates Screen NEGATIVE NEGATIVE Ur Tricyclic Antidepressants Screen NEGATIVE NEGATIVE Urine Phencyclidine Screen NEGATIVE NEGATIVE Urine Amphetamines Screen NEGATIVE NEGATIVE Urine Methamphetamines Screen NEGATIVE NEGATIVE Urine Benzodiazepines Screen NEGATIVE NEGATIVE Urine Cocaine Screen NEGATIVE NEGATIVE Urine Cannabinoids Screen NEGATIVE NEGATIVE My Orders Orders - ELSY VYAS Ua Culture If Indicated (05/25/23 20:41) Cbc With Automated Diff (05/25/23 20:41) Comprehensive Metabolic Panel (05/25/23 20:41) Alcohol (05/25/23 20:41) Drug Screen Stat (Urine) (05/25/23 20:41) Acetaminophen (05/25/23 20:41) Salicylate (05/25/23 20:41) Ekg Tracing (05/25/23 20:41) Ed Iv/Invasive Line Start (05/25/23 20:41) Monitor-Rhythm Ecg Trace Only (05/25/23 20:41) Ns Iv 1000 Ml (Ns Iv 1000 Ml) (05/25/23 20:45) Vital Signs/I&O 05/25/23 20:34 Temp 36.6 Pulse 91 Resp 16 B/P (MAP) 144/93 (110) Capillary Refill : Less Than 3 Seconds Blood Pressure Mean: 110 ECG Comment Sinus rhythm with sinus arrhythmia, 79 bpm, QRS duration 73 MS, QTc 381 MS Departure Communication (PCP) Reviewed previous ER visits, H&P, lab testing. Differential diagnosis, alcohol detox, tremoring, electrolyte abnormality, liver disease. Patient is a 38-year-old male who presents ED for alcohol detox. Patient states he drinks about 5-10 whiskey shooters daily. Last drink was yesterday. Reports meth use smoking 2 days ago. Was seen at [facility] was recommended to come to the ED for medical detox. Patient has a history of epilepsy. Has been on Keppra in the past 500 mg twice daily not currently taking. Last seizure potentially a week ago. He states he typically has seizures at night. He wakes up with muscle pain. Mild shaking but no evidence of tremor. CIWA 1. No vomiting, diarrhea, headache, visual changes. No evidence of DT. No hallucinations. No suicidal or homicidal thoughts. His vital signs are stable. Generalized lab work was ordered. CBC, CMP grossly unremarkable. EKG showed sinus rhythm with sinus arrhythmia. Drug screen unremarkable. Normal alcohol level. Patient does not appear to be actively withdrawing at this time. I do not think patient medically needs admission at this time. I suggest following up with [facility]. Did call over and talked to them this evening. They states their admission coordinator is not currently in and will be in the morning. They cannot accept any patients at this time. It is recommended follow-up in the morning which patient will. Will discharge with Keppra 500 mg twice daily which is recommended for him to take for his epilepsy. Impression Primary Impression: Desire for detoxification Disposition: HOME, SELF-CARE Condition: Stable Departure-Patient Inst. Decision time for Depature: 22:19 Referrals: [facility]O,LOCAL PHYSICIAN (PCP) Primary Care Physician Patient Instructions: Alcohol Use Disorder (DC) Add. Discharge Instructions: On a medical standpoint patient does not require medical admission. Recommend following up with [facility]. All discharge instructions reviewed with patient and/or family. Voiced understanding. Scripts Levetiracetam (Keppra) 500 Mg Tablet 500 MG PO BID, #30 TAB Prov: ELSY VYAS 05/25/23 ELSY VYAS May 25, 2023 21:04
[2023-05-25 21:13] LABS: ALBUMIN 4.2 GM/DL (3.2-4.5); CHLORIDE 107 MMOL/L (98-107); POTASSIUM 3.9 MMOL/L (3.6-5.0); SODIUM 142 MMOL/L (135-145)
[2023-05-25 21:14] LABS: CALCIUM 9.4 MG/DL (8.5-10.1)
[2023-05-25 21:16] LABS: GLUCOSE 102 MG/DL (70-105); TOTAL PROTEIN 6.8 GM/DL (6.4-8.2)
[2023-05-25 21:17] LABS: BILIRUBIN,TOTAL 0.2 MG/DL (0.1-1.0); CARBON DIOXIDE 25 MMOL/L (21-32)
[2023-05-25 21:19] LABS: CREATININE SERUM 1.07 MG/DL (0.60-1.30); GFR ESTIMATED 92
[2023-05-25 21:20] LABS: ALKALINE PHOSPHATASE 55 U/L (40-136)
[2023-05-25 21:21] LABS: ACETAMINOPHEN < 10 UG/ML (10-30); BUN/CREATININE RATIO 9
[2023-05-25 21:22] LABS: SALICYLATE < 5.0 MG/DL (5.0-20.0)
[2023-05-25 21:23] LABS: ALANINE AMINOTRANSFERASE 51 U/L (0-55)
[2023-05-25 21:43] LABS: CLARITY,URINE CLEAR; COLOR,URINE YELLOW; GLUCOSE, URINE (UA) NEGATIVE (NEGATIVE); PROTEIN,URINE TRACE (NEGATIVE)
[2023-05-25 21:44] LABS: BILIRUBIN,URINE NEGATIVE (NEGATIVE); KETONES,URINE TRACE (NEGATIVE); NITRITE,URINE NEGATIVE (NEGATIVE)
[2023-05-25 21:49] LABS: BACTERIA,URINE NEG /HPF; LEUKOCYTE ESTERASE ,URINE NEGATIVE (NEGATIVE); RBC,URINE NEG /HPF; SQUAMOUS EPITHELIAL CELL,UR RARE /HPF; WBC,URINE NEG /HPF
[2023-05-25 21:54] LABS: BENZODIAZEPINES SCREEN URINE NEGATIVE (NEGATIVE); COCAINE SCREEN URINE NEGATIVE (NEGATIVE)
[2023-05-25 21:55] LABS: AMPHETAMINE SCREEN, URINE NEGATIVE (NEGATIVE); BARBITURATE SCREEN URINE NEGATIVE (NEGATIVE); CANNABINOID SCREEN, URINE NEGATIVE (NEGATIVE); METHADONE STAT NEGATIVE (NEGATIVE); OPIATE SCREEN URINE NEGATIVE (NEGATIVE); OXYCODONE STAT NEGATIVE (NEGATIVE); PROPOXYPHENE STAT NEGATIVE (NEGATIVE); TRICYCLIC ANTIDEPRESSANTS SCRE NEGATIVE (NEGATIVE)
[2023-05-25] MEDS ORDERED: LEVE500T99 PO (22:20)
== END 2023-05-25 22:29 | disposition home or self-care (01) ==
LOC: EDUNIT# 20:22 → ER 20:25
DX: Z71.41 Alcohol abuse counseling and surveillance of alcoholic (principal)
CPT/HCPCS: 36415; 80053; 80306; 80320; 80329; 81000; 85025; 93005; 93041

== ENCOUNTER 2023-06-02 01:51 | Emergency (ER) | payer MEDICAID ==
[~2023-06-02] VITALS: Ht 167 cm; Wt 77.0 kg
[2023-06-02 02:05] VITALS: BP 139/95
--- NOTE | 2023-06-02 02:40 | ED Psychosocial ---
General Chief Complaint: Detox Stated Complaint: MEDICAL DETOX Nursing Triage Note: PATIENT AMBULATORY TO ROOM 7. STATES "WITHDRAWLS" STATES REQUEST MEDICAL DETOX. STATES TOOK METH AND WEED EARLIER TODAY Source: patient Exam Limitations: no limitations History of Present Illness Date Seen by Provider: Jun 02, 2023 Time Seen by Provider: 02:15 Initial Comments Patient is a 38-year-old male who presents to the emergency room with a chief complaint of concern for having a seizure due to "coming down off meth". Patient reports a history of seizure disorder. Apparently he is chronically noncompliant with his seizure medicine because it makes him sleepy, "sleep 14 hours a day". When he was here last week he received a prescription for Keppra and did not take it due to that side effect. He also follows with [facility] and was recently prescribed Zoloft but did not fill it. He is trying to get into detox at [facility] but states he does not have a bed date until July 07. Patient states for the last several days he has been using methamphetamine and marijuana. He states every time he stops taking meth he has seizures. He feels like he needs medical detox. I spent a good amount of time talking to the patient about his seizure disorder. Recommended that he be compliant with his medications. Recommended that he potentially cut his Keppra in half if he is getting too sleepy. Recommended discontinuing methamphetamine. He has no symptoms of illness currently. He states he was "hallucinating" tonight, walking all over town. Last use of alcohol was a few days ago. No reported recent injuries. Patient does not know how long his seizures usually last. he has the mostly at night when he sleeping. (and he knows he has seizures at night because he wakes up "sore" in the morning) Timing/Duration: getting worse Associated Symptoms: impaired concentration Allergies and Home Medications Allergies Coded Allergies: NKANo Known Allergies (Verified Allergy, Unknown, 04/10/07) Patient Home Medication List Home Medication List Reviewed: Yes Levetiracetam (Keppra) 500 Mg Tablet, 500 MG PO BID Prescribed by: HALLEY CELIS on 05/25/230 Review of Systems Constitutional: see HPI EENTM: no symptoms reported Respiratory: no symptoms reported Cardiovascular: no symptoms reported Gastrointestinal: no symptoms reported Genitourinary: no symptoms reported Musculoskeletal: no symptoms reported Skin: no symptoms reported Psychiatric/Neurological: Anxiety, Depressed, Emotional Problems, Seizure (h/o seizures) Past Axozwxo-Bfatal-Xfonqt Hx Immunizations Up To Date Tetanus Booster (TDap): Less than 5yrs First/Initial COVID19 Vaccinat: UNKNOWN Second COVID19 Vaccination Albert: UNKNOWN Third COVID19 Vaccination Date: UNKNOWN Seasonal Allergies Seasonal Allergies: No Past Medical History Surgery/Hospitalization HX: ON VISIT 11/12/22, ALL PMH IS FROM OLD RECORDS PT HAD SEVERAL VISITS FROM [id number]--MANY RELATED TO SEIZURES RELATED TO DRUG AND ALCOHOL ABUSE. DID HAVE REPORTED SEIZURES SMALL CHILD, BUT NO SIGNIFICANT PROBLEMS UNTIL DRUG AND ALCOHOL USE IN HIS TEENS. (STATES HE HAS USED "EVERYTHING" --" PRESCRIPTION MEDS, THC, METH, COCAINE, OTHERS" DENIES HEROIN USE AND DENIES IV USE) Neurological: Yes (POSSIBLY DRUG INDUCED?) Seizure Disorder Reproductive Disorders: No Sexually Transmitted Disease: No HIV/AIDS: No Psychosocial: Yes (POLYSUBSTANCE ABUSE) Anxiety Adverse Reaction/Blood Tranf: No Family Medical History No Pertinent Family Hx PT IS HOMELESS. ON 11/12/22, HE STATES HE LIVES IN [place]. HE HAS NO IDEA HOW HE GOT TO [place], OR EVEN THAT HE WAS IN [place]. SOCIAL HISTORY: -SMOKES -ETOH-- -DRUGS, EXTENSIVE HISTORY OF DRUG ABUSE--ON PREVIOUS RECORDS, PT HAS STATED (STATES HE HAS USED "EVERYTHING" --" PRESCRIPTION MEDS, THC, METH, COCAINE, OTHERS" DENIES HEROIN USE AND DENIES IV USE) UDS ON 11/12/22--+ FOR AMPHETAMINES / METHAMPHETAMINES; HE ALSO ADMITTED TO [facility] AT THAT VISIT. Physical Exam Vital Signs - First Documented 06/02/23 02:05 Temp 35.9 Pulse 101 Resp 20 B/P (MAP) 139/95 (110) Pulse Ox 99 O2 Delivery Room Air Capillary Refill : Less Than 3 Seconds Height, Weight, BMI Height: 5'6" Weight: 145lbs. 10.0oz. 66.206315gd; 27.00 BMI Method:Stated General Appearance: no apparent distress HEENT: PERRL/EOMI, pharynx normal Neck: normal inspection Respiratory: lungs clear, normal breath sounds, no respiratory distress, no accessory muscle use Cardiovascular: regular rate, rhythm Extremities: normal range of motion, normal inspection Neurologic/Psychiatric: alert, normal mood/affect, oriented x 3, other (does not appear to be acutely intoxicated, does not appear to be hallucinating or responding to internal stimuli) Appearance/Memory: appropriate appearance Behavior/Eye Contact: cooperative, normal speech, avoids eye contact Thoughts/Hallucinations: no apparent hallucination Skin: normal color, warm/dry Progress/Results/Core Measures Results/Orders Vital Signs/I&O 06/02/23 02:05 Temp 35.9 Pulse 101 Resp 20 B/P (MAP) 139/95 (110) Pulse Ox 99 O2 Delivery Room Air Blood Pressure Mean: 110 Progress Progress Note : Time: 02:36 Progress Note Patient seen and evaluated by me. Evaluation today includes physical exam. He is withdrawn and mumbling quietly. VSS. Heart regular, lungs clear. MAEW. No intraoral injury from seizure. Does not appear to be hallucinating. Long discussion with the patient about his concern for "detoxing" from meth and THC. I advised 1) we are not capable of medical detox at this hospital 2) he does not require medical detox from meth and THC 3) a history seizures is not an indication for admission 4) he needs to be compliant with his medications to prevent seizures. 5) he needs to stop doing meth in the first place if "coming down" triggers his seizures. I advised him to start the medications [facility] has prescribed and contact them tomorrow. He needs medical follow up at [facility]. He should focus on getting his detox bed at [place] in July. No clinical indications for lab work or imaging. Patient does not verbalize SI or HI. Will be given a dose of keppra orally and discharged. Departure Impression Primary Impression: Methamphetamine use Additional Impressions: History of seizure disorder Medical non-compliance Disposition: HOME, SELF-CARE Condition: Stable Departure-Patient Inst. Decision time for Depature: 02:41 Referrals: [facility],LOCAL PHYSICIAN (PCP) Primary Care Physician Patient Instructions: [facility] Add. Discharge Instructions: 1) Stop doing methamphetamine, if when you stop doing the drug it causes you to have a seizure. 2) contact [facility] tomorrow for a follow up appointment and fill the prescription they gave you. 3) Start taking your Keppra. Consider cutting the pills in half if they make you sleepy. 4) Schedule a follow up appointment with [facility] so thay can maybe change you r seizure medications to something you can tolerate better. Return to the Emergency Department for any new concerning or emergent complaints. Copy Copies To 1: ASHLEY AMAYA KATHRYN M MD Jun 02, 2023 02:40
[2023-06-02] MEDS ORDERED: LevETIRAcetam 500 MG TABLET PO ONE (02:45)
== END 2023-06-02 02:49 | disposition home or self-care (01) ==
LOC: EDUNIT# 01:51 → ER 01:53
DX: F15.90 Other stimulant use, unspecified, uncomplicated (principal); Z91.199 Patient's noncompliance with other medical treatment and regimen due to unspecified reason; Z86.69 Personal history of other diseases of the nervous system and sense organs
CPT/HCPCS: 99283

== ENCOUNTER 2023-08-04 11:52 | Emergency (ER) | payer MEDICAID ==
--- NOTE | 2023-08-04 12:39 | ED Psychosocial ---
General Chief Complaint: Suicidal Ideation Risk Stated Complaint: SUICIDAL IDEATIONS Source: patient Exam Limitations: no limitations History of Present Illness Date Seen by Provider: Aug 04, 2023 Time Seen by Provider: 12:35 Initial Comments Patient is a 38-year-old male with a history of polysubstance abuse who presents to the ED for suicidal thoughts. He states over the past 2 days he has had suicidal thoughts of cutting himself. Patient is unsure if he would act upon this. Reports smoking meth yesterday as well as taking a shot of liquor, 1-1/2 dose of Xanax and marijuana yesterday. History of marijuana use. States he does see things moving around him. Denies hearing any voices or telling him to hurt himself or others. States he does have a history of paranoia. History of bipolar depression and epilepsy not currently on medication. Denies any seizure-like activity. Patient has no headache, dizziness, visual change, chest pain or shortness of breath, nausea, vomiting, diarrhea. Patient states he was at [facility] 1 week ago. He reports they will likely not take him back. Patient is homeless Allergies and Home Medications Allergies Coded Allergies: NKANo Known Allergies (Verified Allergy, Unknown, 04/10/07) Patient Home Medication List Home Medication List Reviewed: Yes Levetiracetam (Keppra) 500 Mg Tablet, 500 MG PO BID Prescribed by: HALLEY CELIS on 05/25/232219 Review of Systems Constitutional: No chills, No diaphoresis EENTM: No ear pain, No blurred vision, No double vision Respiratory: No cough Cardiovascular: No chest pain Gastrointestinal: No abdominal pain, No diarrhea, No nausea, No vomiting Genitourinary: No decreased output, No discharge Musculoskeletal: No back pain, No joint pain Skin: No change in color, No change in hair/nails Psychiatric/Neurological: Other (Paranoia, suicidal ideations) All Other Systems Reviewed Negative Unless Noted: Yes Past Razpnld-Zbirdb-Mymsdg Hx Immunizations Up To Date Tetanus Booster (TDap): Less than 5yrs First/Initial COVID19 Vaccinat: UNKNOWN Second COVID19 Vaccination Albert: UNKNOWN Third COVID19 Vaccination Date: UNKNOWN Seasonal Allergies Seasonal Allergies: No Past Medical History Surgery/Hospitalization HX: ON VISIT 11/12/22, ALL PMH IS FROM OLD RECORDS PT HAD SEVERAL VISITS FROM [id number]--MANY RELATED TO SEIZURES RELATED TO DRUG AND ALCOHOL ABUSE. DID HAVE REPORTED SEIZURES SMALL CHILD, BUT NO SIGNIFICANT PROBLEMS UNTIL DRUG AND ALCOHOL USE IN HIS TEENS. (STATES HE HAS USED "EVERYTHING" --" PRESCRIPTION MEDS, THC, METH, COCAINE, OTHERS" DENIES HEROIN USE AND DENIES IV USE) Neurological: Yes (POSSIBLY DRUG INDUCED?) Seizure Disorder Reproductive Disorders: No Sexually Transmitted Disease: No HIV/AIDS: No Psychosocial: Yes (POLYSUBSTANCE ABUSE) Anxiety Adverse Reaction/Blood Tranf: No Family Medical History No Pertinent Family Hx PT IS HOMELESS. ON 11/12/22, HE STATES HE LIVES IN [place]. HE HAS NO IDEA HOW HE GOT TO [place], OR EVEN THAT HE WAS IN [place]. SOCIAL HISTORY: -SMOKES -ETOH-- -DRUGS, EXTENSIVE HISTORY OF DRUG ABUSE--ON PREVIOUS RECORDS, PT HAS STATED (STATES HE HAS USED "EVERYTHING" --" PRESCRIPTION MEDS, THC, METH, COCAINE, OTHERS" DENIES HEROIN USE AND DENIES IV USE) UDS ON 11/12/22--+ FOR AMPHETAMINES / METHAMPHETAMINES; HE ALSO ADMITTED TO [facility] AT THAT VISIT. Physical Exam Vital Signs - First Documented 08/04/23 12:05 Temp 37.0 Pulse 103 Resp 20 B/P (MAP) 131/85 (100) Pulse Ox 96 O2 Delivery Room Air Capillary Refill : Height, Weight, BMI Height: 5'6" Weight: 145lbs. 10.0oz. 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 II-XII nml as tested, no motor/sensory deficits, alert, normal mood/affect Behavior/Eye Contact: avoids eye contact, increased rate of speech Thoughts/Hallucinations: paranoid Skin: normal color, warm/dry Progress/Results/Core Measures Results/Orders Lab Results Laboratory Tests Test 08/04/23 12:40 08/04/23 12:50 08/04/23 12:55 Range/Units SARS-CoV-2 RNA (RT-PCR) Not Detected Not Detecte White Blood Count 17.7 H 4.3-11.0 10^3/uL Red Blood Count 5.39 4.30-5.52 10^6/uL Hemoglobin 15.5 13.3-17.7 g/dL Hematocrit 44 40-54 % Mean Corpuscular Volume 82 80-99 fL Mean Corpuscular Hemoglobin 29 25-34 pg Mean Corpuscular Hemoglobin Concent 35 32-36 g/dL Red Cell Distribution Width 12.6 10.0-14.5 % Platelet Count 328 130-400 10^3/uL Mean Platelet Volume 10.1 9.0-12.2 fL Immature Granulocyte % (Auto) 0 % Neutrophils (%) (Auto) 87 H 42-75 % Lymphocytes (%) (Auto) 4 L 12-44 % Monocytes (%) (Auto) 7 0-12 % Eosinophils (%) (Auto) 0 0-10 % Basophils (%) (Auto) 0 0-10 % Neutrophils # (Auto) 15.5 H 1.8-7.8 10^3/uL Lymphocytes # (Auto) 0.8 L 1.0-4.0 10^3/uL Monocytes # (Auto) 1.3 H 0.0-1.0 10^3/uL Eosinophils # (Auto) 0.0 0.0-0.3 10^3/uL Basophils # (Auto) 0.1 0.0-0.1 10^3/uL Immature Granulocyte # (Auto) 0.1 0.0-0.1 10^3/uL Neutrophils % (Manual) 86 % Lymphocytes % (Manual) 6 % Monocytes % (Manual) 3 % Eosinophils % (Manual) 0 % Basophils % (Manual) 0 % Band Neutrophils 5 % Blood Morphology Comment NORMAL Sodium Level 137 135-145 MMOL/L Potassium Level 3.7 3.6-5.0 MMOL/L Chloride Level 103 98-107 MMOL/L Carbon Dioxide Level 15 L 21-32 MMOL/L Anion Gap 19 H 5-14 MMOL/L Blood Urea Nitrogen 27 H 7-18 MG/DL Creatinine 1.14 0.60-1.30 MG/DL Estimat Glomerular Filtration Rate 85 BUN/Creatinine Ratio 24 Glucose Level 91 70-105 MG/DL Calcium Level 9.7 8.5-10.1 MG/DL Corrected Calcium 8.5-10.1 MG/DL Total Bilirubin 2.1 H 0.1-1.0 MG/DL Aspartate Amino Transf (AST/SGOT) 42 H 5-34 U/L Alanine Aminotransferase (ALT/SGPT) 54 0-55 U/L Alkaline Phosphatase 67 40-136 U/L Total Protein 7.7 6.4-8.2 GM/DL Albumin 4.7 H 3.2-4.5 GM/DL Thyroid Stimulating Hormone (TSH) 0.46 0.35-4.94 UIU/ML Salicylates Level < 5.0 L 5.0-20.0 MG/DL Acetaminophen Level < 10 L 10-30 UG/ML Serum Alcohol < 10 <10 MG/DL Urine Color ORANGE H Urine Clarity CLOUDY Urine pH 6.0 5-9 Urine Specific Bucks >=1.030 1.016-1.022 Urine Protein 2+ H NEGATIVE Urine Glucose (UA) NEGATIVE NEGATIVE Urine Ketones 3+ H NEGATIVE Urine Nitrite POSITIVE H NEGATIVE Urine Bilirubin 2+ H NEGATIVE Urine Urobilinogen 1.0 < = 1.0 MG/DL Urine Leukocyte Esterase NEGATIVE NEGATIVE Urine RBC (Auto) NEGATIVE NEGATIVE Urine RBC NONE /HPF Urine WBC RARE /HPF Urine Crystals NONE /LPF Urine Bacteria FEW H /HPF Urine Casts NONE /LPF Urine Mucus MODERATE H /LPF Urine Culture Indicated YES Urine Opiates Screen NEGATIVE NEGATIVE Urine Oxycodone Screen NEGATIVE NEGATIVE Urine Methadone Screen NEGATIVE NEGATIVE Urine Barbiturates Screen NEGATIVE NEGATIVE Ur Tricyclic Antidepressants Screen NEGATIVE NEGATIVE Urine Phencyclidine Screen NEGATIVE NEGATIVE Urine Amphetamines Screen POSITIVE H NEGATIVE Urine Methamphetamines Screen POSITIVE H NEGATIVE Urine Benzodiazepines Screen POSITIVE H NEGATIVE Urine Cocaine Screen NEGATIVE NEGATIVE Urine Cannabinoids Screen POSITIVE H NEGATIVE My Orders Orders - ELSY VYAS Ua Culture If Indicated (08/04/23 12:14) Cbc And Automated Diff (08/04/23 12:14) Comprehensive Metabolic Panel (08/04/23 12:14) Alcohol (08/04/23 12:14) Drug Screen Stat (Urine) (08/04/23 12:14) Acetaminophen (08/04/23 12:14) Salicylate (08/04/23 12:14) Ekg Tracing (08/04/23 12:14) Monitor-Rhythm Ecg Trace Only (08/04/23 12:14) Covid 19 Inhouse Test (08/04/23 12:14) Manual Differential (08/04/23 12:50) Urine Culture (08/04/23 12:55) Ceftriaxone Iv/Im (Ceftriaxone Iv/Im) (08/04/23 13:30) Lidocaine 1% Inj 20 Ml (Xylocaine 1% Inj (08/04/23 13:30) Doxycycline Hyclate Tablet (Doxycycline (08/04/23 13:59) Neis Domenico Dna Urine Test (08/04/23 14:00) Chlamydia Trachomatis Urine (08/04/23 14:00) General/Regular (08/04/23 Lunch) Thyroid Stimulating Hormone (08/04/23 15:08) Medically Cleared Psych Txfr (08/04/23 15:11) Medications Given in ED Current Medications Medications Dose Ordered Sig/Cecy Route Start Time Stop Time Status Last Admin Dose Admin Ceftriaxone Sodium 1,000 mg ONCE ONCE IM 08/04/23 13:30 08/04/23 13:31 DC 08/04/23 13:48 1,000 MG Lidocaine HCl 2.1 ml ONCE ONCE INJ 08/04/23 13:30 08/04/23 13:31 DC 08/04/23 13:48 2.1 ML Vital Signs/I&O 08/04/23 08/04/23 12:05 19:04 Temp 37.0 37.0 Pulse 103 82 Resp 20 16 B/P (MAP) 131/85 (100) 126/81 Pulse Ox 96 98 O2 Delivery Room Air Room Air Comment Sinus rhythm with marked sinus arrhythmia, 99 bpm, QRS duration 104 MS, QTc 395 MS. Departure Communication (PCP) Patient is 38-year-old male with history of polysubstance abuse last use was last night of meth, marijuana and alcohol who presents the ED for suicidal ideations. Plan of cutting himself. There is no evidence of injury on exam. History of SI in the past. Has been seen in the past for polysubstance abuse. Psych work-up was initiated. Removed all clothing. Patient was placed in a gown. Moderate risk 15-minute checks. CBC showed an elevated white blood count of 17. Chemistry BUN of 27, creatinine 1.14, GFR 85. Bilirubin 2.1, AST 42. TSH 0.46. Normal alcohol level. Drug screen positive for methamphetamine and marijuana and benzo. Urinalysis with positive nitrites concerning for UTI. Did add gonorrhea and chlamydia. Patient received a gram of Rocephin. Received doxycycline treated for STDs prophylactically. COVID-negative. Vital signs remained stable. No active hallucinations. Reports suicidal thoughts. He does appear to have some form of paranoia. Fast speech. He has been cooperative. patient was evaluated by behavioral health. Working on transfer to [facility]. Discussed patient with Dr. Dickens resident on-call for Dr. Lopez who agreed to accept patient. Patient will be transferred by Viviane Flaherty. Will discharge with doxycycline concerning for STD with positive urinary tract infection. Patient did receive Rocephin 1 g here. Impression Primary Impression: Suicidal ideation Additional Impression: Polysubstance abuse Disposition: 02 XFER SHT-TRM HOSP Condition: Stable Transfer Medically Cleared for Xfer: Yes Transfer Reason: Exceeds level of care Time Spoke to Accepting Phy: 15:10 Transfer Progress Notes [facility] Accepting Dr. Lopez Transfer Time: 15:10 Transfer Facility: [facility] Method of Transfer: Departure-Patient Inst. Referrals: NO,LOCAL PHYSICIAN (PCP/Family) Primary Care Physician Patient Instructions: OUTPT MENTAL HEALTH SERVICES ELSY VYAS Aug 04, 2023 12:38
[2023-08-04 12:59] LABS: BASOPHILS # (AUTO) 0.1 10^3/uL (0.0-0.1); BASOPHILS % (AUTO) 0 % (0-10); EOSINOPHILS % (AUTO) 0 % (0-10); HEMATOCRIT 44 % (40-54); HEMOGLOBIN 15.5 g/dL (13.3-17.7); LYMPHOCYTES # (AUTO) 0.8 10^3/uL (1.0-4.0); LYMPHOCYTES % (AUTO) 4 % (12-44); MEAN CORPUSCULAR HEMOGLOBIN 29 pg (25-34); MEAN CORPUSCULAR HGB CONC 35 g/dL (32-36); MEAN CORPUSCULAR VOLUME 82 fL (80-99); MEAN PLATELET VOLUME 10.1 fL (9.0-12.2); MONOCYTES # (AUTO) 1.3 10^3/uL (0.0-1.0); MONOCYTES % (AUTO) 7 % (0-12); NEUTROPHILS # (AUTO) 15.5 10^3/uL (1.8-7.8); NEUTROPHILS % (AUTO) 87 % (42-75); PLATELET COUNT 328 10^3/uL (130-400); WHITE BLOOD COUNT 17.7 10^3/uL (4.3-11.0)
[2023-08-04 13:14] LABS: CLARITY,URINE CLOUDY; COLOR,URINE ORANGE; GLUCOSE, URINE (UA) NEGATIVE (NEGATIVE); KETONES,URINE 3+ (NEGATIVE); NITRITE,URINE POSITIVE (NEGATIVE); PROTEIN,URINE 2+ (NEGATIVE)
[2023-08-04 13:15] LABS: BACTERIA,URINE FEW /HPF; BILIRUBIN,URINE 2+ (NEGATIVE); LEUKOCYTE ESTERASE ,URINE NEGATIVE (NEGATIVE); WBC,URINE RARE /HPF
[2023-08-04 13:23] LABS: AMPHETAMINE SCREEN, URINE POSITIVE (NEGATIVE); BARBITURATE SCREEN URINE NEGATIVE (NEGATIVE); CANNABINOID SCREEN, URINE POSITIVE (NEGATIVE); COCAINE SCREEN URINE NEGATIVE (NEGATIVE); METHADONE STAT NEGATIVE (NEGATIVE); OPIATE SCREEN URINE NEGATIVE (NEGATIVE); OXYCODONE STAT NEGATIVE (NEGATIVE); TRICYCLIC ANTIDEPRESSANTS SCRE NEGATIVE (NEGATIVE)
[2023-08-04 13:23] LABS: BAND NEUTROPHILS 5 %; BASOPHILS % (MANUAL) 0 %; EOSINOPHILS % (MANUAL) 0 %; LYMPHOCYTES % (MANUAL) 6 %; MONOCYTES % (MANUAL) 3 %; NEUTROPHILS % (MANUAL) 86 %; RBC MORPH NORMAL
[2023-08-04] MEDS: cefTRIAXone 1,000 MG VIAL IV/IM IM ONE (13:48)
[2023-08-04] MEDS: LIDOCAINE 1% INJ 20 ML VIAL INJ ONE (13:48)
[2023-08-04 13:50] LABS: ALBUMIN 4.7 GM/DL (3.2-4.5); CHLORIDE 103 MMOL/L (98-107); POTASSIUM 3.7 MMOL/L (3.6-5.0); SODIUM 137 MMOL/L (135-145)
[2023-08-04 13:51] LABS: CALCIUM 9.7 MG/DL (8.5-10.1)
[2023-08-04 13:52] LABS: GLUCOSE 91 MG/DL (70-105); TOTAL PROTEIN 7.7 GM/DL (6.4-8.2)
[2023-08-04 13:53] LABS: CARBON DIOXIDE 15 MMOL/L (21-32)
[2023-08-04 13:54] LABS: BILIRUBIN,TOTAL 2.1 MG/DL (0.1-1.0)
[2023-08-04 13:56] LABS: ALKALINE PHOSPHATASE 67 U/L (40-136); CREATININE SERUM 1.14 MG/DL (0.60-1.30); GFR ESTIMATED 85
[2023-08-04 13:57] LABS: BUN/CREATININE RATIO 24
[2023-08-04 13:59] LABS: ALANINE AMINOTRANSFERASE 54 U/L (0-55); SALICYLATE < 5.0 MG/DL (5.0-20.0)
[2023-08-04 14:01] LABS: ACETAMINOPHEN < 10 UG/ML (10-30)
[2023-08-04 19:04] VITALS: BP 126/81
== END 2023-08-04 19:04 | disposition short-term general hospital (02) ==
LOC: EDUNIT# 11:52 → ER 11:54
DX: R45.851 Suicidal ideations (principal); F19.10 Other psychoactive substance abuse, uncomplicated
CPT/HCPCS: 36415; 80053; 80306; 80320; 80329; 81000; 84443; 85007; 85027; 87088; 87491; 87591; 87636; 93005